=== PATIENT | male | born 1960 | race Caucasian/White ===

== ENCOUNTER → 2018-01-03 | Outpatient (CLI) | payer OTHER ==
[~2018-01-03] MED LIST: ACET-1256 PO; ACET-749 PO; AMOX500C3 PO; CIPR1TAB10 PO; CLC100 PO; CMD5 PO; CRS/10 PO; DIPH25CA65 PO; DTR5 PO; ENOX80IN SQ; FURO-85 PO; LVT/20 PO; PSEU60TA80 PO; WARF10TA4 PO
--- NOTE | 2018-01-04 07:56 | PAP/PSG TECHNICIAN REPORT ---
[facility] Popped Corn Oven Attendant Polysomnogram Report Study name: None Report date: 01/04/2018 Study date: 01/03/2018 Referring Physician: Luis Sullivan PA-C Name: TAWANA JOHNSON Interpreting Physician: Lorenzo Mcguire M.D. Date of : 1960 Popped Corn Oven Attendant: Linda Terrell, PSGT. Sex: Male Age: 57 StudyType: PSG Weight: 216 lbs Height: 57 years, Height 5' 9" Neck Circum:15.5 inches BMI: 31.89 Medications: Benadryl 25 mg, Lovenox 100, Lasix 20 mg, Crestor 10 mg, Levitra 20 mg, Coumadin 5 mg. Patient History 57 yr. old here for a baseline sleep study, he states that he went to his PCP and asked for ADD medication, and he was told he had to have a sleep study done prior. He also states that he sleeps sitting up in a recliner due to lower back pain, he states that he has poor sleep hygiene, wakes and watches t.v. or gets on the computer, walks around lets dog out etc. throughout the night.ESS=1, Neck= 15.5 inches Parameters Monitored NPSG: E1-M2, E2-M1, Fp1-M2, Fp2-M1, F3-M2, F4-M2, F4-M1, C3-M2, C4-M2, C4-M1, O1-M2, O2-M2, O2-M1, T3-M2, T4-M1, P3-M2, P4-M1, CHIN1, CHIN2, HR, EKG, Legs, PFLOW, SNOR, FLOW, CFLOW, Tidal Volume, THOR, ABDO, SpO2, PLTH, CPRESS, ETCO2 Wave, ETCO2, pH Sleep Architecture Sleep Stages Time at Lights Off 10:18:31 PM STAGES Time (min.) TST (%) Time at Lights On 5:27:31 AM Wake 90.5 -- Total Recording Time (TRT) 429.50 min. N1 15.5 5 Total Sleep Period (TSP) 351.5 min. N2 224.0 66 Total Sleep Time (TST) 338.5min. N3 0.0 0 Awake Time 91.0 min. REM 99.0 29 Wake after Sleep Onset 13.0 min. Sleep Efficiency (SE) 79 % Sleep Onset Latency (HAILEE) 77.5 min. Number of Stage 1 Shifts None Awakenings 5 Stage Changes 30 Number of REM periods 2 REM 99.0 29 REM Latency 56.0 min. NREM 239.5 71 Body Position Analysis Supine Right Left Side Prone Vertical Total Sleep Time (min.) 429.0 0.0 0.0 0.00 0.0 0.0 Total Sleep Time (%) 100% 0% 0% 0 0% N/A% Total Sleep Time REM (min.) 99.0 0.0 0.0 None 0.0 0.0 Total Sleep Time NREM (min.) 239.5 0.0 0.0 None 0.0 0.0 Intermittent Wake (min.) 90.5 0.0 0.0 None 0.0 0.0 Total Sleep Period (%) 100% None None None None None Arousals Myoclonus (PLM) * Events Count Index Events Count Index Spontaneous 26 5 Events Awake (PLMW) 1 0.7 Respiratory 38 6.7 Events Asleep w/ Arousal (PLMA) 2 0.4 PLM 2 0 Events Asleep w/o Arousal (PLMS) 16 2.8 Snoring 4 1 Total Asleep 18 3.2 Total 70 12 Total 19 3 Respiratory Analysis * CA OA MA CH H RERA Total Count 3 21 4 0 93 0 121 Index 0.5 3.7 0.7 0 16.5 0 21.4 Mean Duration 22.1 25.7 18.7 0.00 24.2 0.0 24.3 Longest Duration 27.6 31.6 25.5 0.00 25.5 0.0 53.3 Respiratory Event Summary Total Supine ~Supine Right Left Prone REM NREM Apneas Count 28 28 N/A N/A N/A N/A 0 28 Index 5.0 5 N/A N/A N/A N/A 0 7 Hypopneas (4% Desat) Count 93 93 N/A N/A N/A N/A 3 90 Index 16.5 16.5 N/A N/A N/A N/A 1.8 22.5 Apneas & All Hypopneas Count 121 121 N/A N/A N/A N/A 3 118 Index 21.4 21 N/A N/A N/A N/A 1.8 29.6 Respiratory Events (Chemical Processor+All Hyp+RERA) Count 121 121 N/A N/A N/A N/A 3 118 Index 21.4 21 N/A N/A N/A N/A 1.8 29.6 Respiratory Related Arousal Count 38 121 N/A N/A N/A N/A 0 38 Index 6.7 7 N/A N/A N/A N/A 0 10 Snoring Analysis Supine Right Left Prone REM NREM Total Snore duration 1.4 min Snores count 72 N/A N/A N/A 0 72 72 Snore mean duration 1.1 Sec Snores index 13 N/A N/A N/A 0.0 18.0 12.8 TST with snoring (%) 0.4% Desaturation Event Summary: Minimum %SpO2 Event Count Mean/Min/Max Duration(sec.) Desaturation Index % Time In Bed > 90 117 25.7 / 11.3 / 58.8 31.3 52.4 86 - 90 40 25.9 / 4.0 / 58.8 12.6 44.5 81 - 85 0 N/A 0.0 3.0 76 - 80 0 N/A 0.0 0.1 71 - 75 0 N/A 0.0 0.0 66 - 70 0 N/A 0.0 0.0 61 - 65 0 N/A 0.0 0.0 56 - 60 0 N/A 0.0 0.0 51 - 55 0 N/A 0.0 0.0 < 50 0 N/A 0.0 0.0 Total REM NREM Awake <50% 0.0 min. 0.0 min. 0.0 min. 0.0 min. 51 - 60% 0.0 min. 0.0 min. 0.0 min. 0.0 min. 61 - 70% 0.0 min. 0.0 min. 0.0 min. 0.0 min. 71 - 80% 0.4 min. 0.0 min. 0.3 min. 0.2 min. 81 - 90% 203.5 min. 61.9 min. 110.2 min. 31.4 min. 91 - 100% 224.4 min. 36.9 min. 128.8 min. 58.6 min. Average 90 90 90 91 Minimum SpO2 79 85 79 80 Desaturation Event Index 17.6 5.5 29.3 0.0 # Desat. Events below 89% 98 8 90 0 Time(%) with Saturation below 89% 11.9 2.2 7.7 2.0 Time(min.) with Saturation below 89% 51.1 9.6 33.1 8.4 Time (mins) REM (mins) NREM (mins) % of TST SpO2 Below 90% 126 9 N117 25.1 SpO2 Below 88% 43 0 0 8 Heart Rate Analysis Min (bpm) Max (bpm) Average (bpm) Awake 63 85 71 NREM 36 101 70 REM 37 82 71 Overall 36 101 70 Supplemental O2 Values Minimum O2 level: None Value Start Time End Time Popped Corn Oven Attendant Comments . PSG Study Mr. Johnson slept in the supine positions. Cardiac arrhythmia or PLM's noted. No bruxism noted. Snoring was noted and scored as a 2 on a scale of 1 through 5. (0=no snoring, 5=snoring loud enough to be heard through a closed door or down the mims way) Mr. Johnson awoke to use the restroom zero times during the night. Mr. Johnson stated, I did sleep as well as I do when I am in my own recliner. The final report will be interpreted and signed by a sleep physician. The completed physician report will then be placed in the patient medical record Patient slept at a 40% incline, I also told him that he did have sleep apnea, due to surgery on Thursday01/05/18 to have his prostrate removed, I told him that it would be beneficial for the anesthesiologist to know. Therapy (cm H2O) 0 TIB (min.) 429.0 TST (min.) 338.5 Sleep Onset (min.) 77.5 REM Onset From Sleep (min.) 56.0 Sleep Efficiency % 79 Wakefulness (%) 21 Wakefulness (min.) 91.0 NREM 1 (%) 5 NREM 1 (min.) 15.5 NREM 2 (%) 66 NREM 2 (min.) 224.0 NREM 3 (%) 0 NREM 3 (min.) 0.0 REM (%) 29 REM (min.) 99.0 # Arousals 70 Arousal Index 12 # Snore 72 Snore Index 12.8 AHI 21.4 AHI Supine 21 AHI Non-Supine N/A NREM AHI 29.6 REM AHI 1.8 RDI 21.4 # Obstructive Apnea 21 # Central Apnea 3 # Mixed Apnea 4 # Hypopneas 93 RERAs 0 Total Respiratory Events 121 Time Below SpO2 89% (min.) 42.7 Mean NREM SpO2 (%) 90 Mean REM SpO2 (%) 90 Mean Sleep SpO2 (%) 90 Min NREM SpO2 (%) 79 Min REM SpO2 (%) 85 Position Supine (min.) 429.0 Position Non-supine (min.) 0.0 LM Index Sleep 3.2 LM Index NREM 3.3 LM Index REM 3.0 Mean Heart Rate (bpm) 70 Min Heart Rate (bpm) 36
--- NOTE | 2018-01-08 12:38 | POLYSOMNOGRAPH REPORT ---
CLINICAL DATA: A 57-year-old male with BMI of 31.9 referred by Luis Acosta PA-C. He went to his primary care provider for ADD medication and was told he had to have a sleep study done prior to that. He sleeps sitting up in a recliner due to lower back pain. He awakens, watches TV or gets on the computer at night, walks his dog and has poor sleep hygiene. His Astatula sleepiness score is 1/24. SLEEP ARCHITECTURE: Total sleep period was 351.5 minutes. Total sleep time was 338.5 minutes divided between 239.5 minutes of non-REM sleep and 99 minutes of REM sleep. Sleep onset latency was delayed at 77.5 minutes. REM latency was 56 minutes. Sleep efficiency was 79%. Wake after sleep onset was 13 minutes. Sleep consisted of stage N1 5%, stage N2 66%, and REM 29%. AROUSAL DATA: Seventy arousals were recorded for an index of 12 per hour. PERIODIC LIMB MOVEMENT DATA: Eighteen limb movements during sleep were noted for an index of 3.2 per hour with arousal index of 0.4 per hour. RESPIRATORY DATA: Moderate sleep apnea was documented. The AHI was 21.4. There were 3 central, 21 obstructive, and 4 mixed apneic episodes. The longest apneic episode was 31.6 seconds. There were 93 hypopneic episodes. The longest hypopneic episode was 25.5 seconds. OXIMETRY DATA: Nocturnal hypoxemia was seen. Oxygen harley was 85% during REM. Mean saturation was 90%. Time below 88% was 43 minutes. ECHOCARDIOGRAM: Heart rates ranged from 36-101 beats per minute. SCENIC ARTS SUPERVISOR'S COMMENTS: The patient slept supine. Snoring was mild, rated 2 on a scale of 1-5. He slept at a 40% incline. IMPRESSION: Moderate sleep apnea/hypopnea with an apnea/hypopnea index of 21.4 with nocturnal hypoxemia. RECOMMENDATIONS: The patient may benefit from a repeat sleep study with CPAP or use of an oral appliance. Clinical correlation is needed. CLAUDIA
== END | disposition home or self-care (01) ==
LOC: C.NEUR 20:00
PROVIDERS: ATTEND Physician Assistant
DX: G47.9 Sleep disorder, unspecified (principal); G47.33 Obstructive sleep apnea (adult) (pediatric)

== ENCOUNTER 2018-01-05 05:25 | Inpatient (IN) | payer OTHER ==
[2017-12-25 14:11] VITALS: BMI 32.0
--- NOTE | 2017-12-25 14:23 | PAT Medication Instructions ---
Service Date Dec 25, 2017. Current Home Medication List Amoxicillin (Amoxil), 4 CAP PO UD PRN for RN Diphenhydramine Hcl (Benadryl Allergy), 1 CAP PO HS Furosemide (Lasix), 20 MG PO PRN Pseudoephedrine-Guaifenesin (Mucinex D), 1 TAB PO PRN Rosuvastatin Calcium (Crestor), 10 MG PO QPM Vardenafil (Levitra), 20 MG PO DIRECTED Warfarin Sod (Jantoven), 10 MG PO QPM Medication Instructions For Your Scheduled Surgery Amoxicillin (Amoxil), 4 CAP PO UD PRN for RN (continue as directed) - Check with surgeon and prescribing physician for instructions: Warfarin Sod (Jantoven), 10 MG PO QPM - Hold the following medications the morning of surgery: Furosemide (Lasix), 20 MG PO PRN Pseudoephedrine-Guaifenesin (Mucinex D), 1 TAB PO PRN Vardenafil (Levitra), 20 MG PO DIRECTED - Take the following medications as scheduled the night before surgery: Vardenafil (Levitra), 20 MG PO DIRECTED (if needed) Rosuvastatin Calcium (Crestor), 10 MG PO QPM Diphenhydramine Hcl (Benadryl Allergy), 1 CAP PO HS Furosemide (Lasix), 20 MG PO PRN (if needed) Pseudoephedrine-Guaifenesin (Mucinex D), 1 TAB PO PRN (if needed) If you have any questions please call us at [phone] or [phone] or [phone]
--- NOTE | 2017-12-25 15:16 | DIAGNOSTIC IMAGING REPORT ---
CHEST 2 VIEWS ROUTINE CLINICAL HISTORY: 57 years-old Male presenting with preoperative assessment. TECHNIQUE: PA and lateral views of the chest were obtained. COMPARISON: None. FINDINGS: Median sternotomy wires and prosthetic aortic valve noted. Cardiac silhouette normal in size. Lungs and pleural spaces clear. Exaggerated thoracic kyphosis with mild multilevel degenerative changes. No focal compression deformity. Upper abdomen normal. IMPRESSION: 1. No acute cardiopulmonary disease. Electronically signed by: Cooper Cisneros M.D. 12/25/2017 3:15 PM Dictated Date/Time: 12/25/2017 3:14 PM
[2017-12-25 15:34] LABS: BASO % 0.3 %; BASO ABS # 0.02 K/uL (0-0.2); EOS ABS # 0.07 K/uL (0-0.5); HEMATOCRIT 42.6 % (42-52); HEMOGLOBIN 14.8 g/dL (14.0-18.0); IG# 0.01 K/uL (0.00-0.02); LYMPH % 21.4 %; LYMPH ABS # 1.49 K/uL (1.2-3.4); MEAN CELL VOLUME 88.8 fL (80-100); MEAN CORPUSCULAR HEMOGLOBIN 30.8 pg (25-34); MEAN CORPUSCULAR HGB CONC 34.7 g/dl (32-36); MONO % 7.9 %; MONO ABS # 0.55 K/uL (0.11-0.59); NEUT % 69.3 %; NEUT ABS # 4.82 K/uL (1.4-6.5); PLATELET COUNT 177 K/uL (130-400); RED CELL DISTRIBUTION WIDTH CV 12.9 % (11.5-14.5); RED CELL DISTRIBUTION WIDTH SD 41.6 fL (36.4-46.3); WHITE BLOOD COUNT 6.96 K/uL (4.8-10.8)
[2017-12-25 16:14] LABS: CALCIUM 9.2 mg/dl (8.5-10.1); CREATININE 0.97 mg/dl (0.60-1.40); POTASSIUM 3.9 mmol/L (3.5-5.1)
[2018-01-05] VITALS (9 sets, daily range): BP systolic 105–128; BP diastolic 66–80; PULSE 80–101; TEMP 36.5–37.4; O2SAT 94–97; Ht 175.3 cm; Wt 98.8 kg
[~2018-01-05] VITALS: Ht 175.3 cm; Wt 98.8 kg
[~2018-01-05 05:25] MED LIST changes: -ACET-1256 PO; -ACET-749 PO; -CIPR1TAB10 PO; -CLC100 PO; -CMD5 PO; -DTR5 PO; -ENOX80IN SQ
[2018-01-05] MEDS ORDERED: LACTATED RINGER'S 1000ML 1,000 ML IV SCH (06:00)
[2018-01-05] MEDS ORDERED: CEFAZOLIN 2000MG IV PUSH 15 ML IV SCH (06:00)
[2018-01-05] MEDS ORDERED: HEPARIN SOD 5000 UNIT/0.5 ML CARP SQ SCH (06:00)
[2018-01-05 06:10] LABS: PTT PATIENT 26.4 SECONDS (21.0-31.0)
[2018-01-05] MEDS ORDERED: ENOX80IN SQ (06:11)
[2018-01-05] MEDS ORDERED: ONDANSETRON INJ 2 MG/ML 2 ML VIAL ONE ×2 (06:48→10:46)
[2018-01-05] MEDS ORDERED: MIDAZOLAM HCL 1 MG/ML 2ML VIAL ONE (06:48)
[2018-01-05] MEDS ORDERED: DEXAMETHASONE SOD INJ 4 MG/ML VIAL ONE (06:48)
[2018-01-05] MEDS ORDERED: GLYCOPYRROLATE INJ 0.2 MG/ML VIAL ONE (06:48)
[2018-01-05] MEDS ORDERED: PROPOFOL IV EMULSION 10 MG/ML 20 ML VIAL IV ONE (06:48)
[2018-01-05] MEDS ORDERED: NEOSTIGMINE METHYLSULFATE 5 MG/5 ML SYR ONE (06:48)
[2018-01-05] MEDS ORDERED: FENTANYL CITRATE INJ 50 MCG/1 ML 2 ML VIAL ONE (06:48)
[2018-01-05] MEDS ORDERED: LIDOCAINE HCL 2% 2 ML VIAL (20MG/ML) ONE (06:48)
[2018-01-05] MEDS ORDERED: BUPIVACAINE 0.5 % 5 MG/1 ML MPF 30ML VIAL ONE (06:57)
--- NOTE | 2018-01-05 07:21 | History & Physical Bridge Note ---
H&P Re-Evaluation Bridge Note: I have examined the patient, reviewed the History & Physical and in the interval since the performance of the History & Physical I have noted the following changes of clinical significance: No changes noted
[2018-01-05] MEDS ORDERED: ACETAMINOPHEN 1000 MG/100 ML IV IV ONE (07:35)
[2018-01-05] MEDS ORDERED: BELLADONNA/OPIUM SUPP 60 MG SUPP PR ONE ×2 (08:03→09:01)
[2018-01-05] MEDS ORDERED: ATROPINE SULFATE 0.1 MG/ML 5ML SYR IV PRN (08:15)
[2018-01-05] MEDS ORDERED: NALOXONE HCL 0.4 MG/1 ML VIAL/CARP IV PRN (08:15)
[2018-01-05] MEDS ORDERED: FLUMAZENIL 0.1 MG/1 ML 10 ML VIAL IV PRN (08:15)
[2018-01-05] MEDS ORDERED: MoRPHine SULFATE 4 MG/ML 1 ML CARP\\VIAL IV PRN (08:15)
[2018-01-05] MEDS ORDERED: EpHEDrine SULFATE INJ 50 MG/ML AMP IV PRN (08:15)
[2018-01-05] MEDS ORDERED: MEPERIDINE HCL 25 MG/ML CARP IV PRN (08:15)
[2018-01-05] MEDS ORDERED: LABETALOL HCL IV 5 MG/ML 20ML IV PRN (08:15)
[2018-01-05] MEDS ORDERED: ONDANSETRON INJ 2 MG/ML 2 ML VIAL IV PRN ×2 (08:15→11:15)
[2018-01-05] MEDS ORDERED: PHENYLEPHRINE 100MCG/ML 5ML SYR IV PRN (08:15)
[2018-01-05] MEDS ORDERED: ROCURONIUM BROMIDE 10 MG/ML 5 ML VIAL IV ONE (08:41)
[2018-01-05] MEDS ORDERED: PHENYLEPHRINE 100MCG/ML 5ML SYR ONE (08:44)
[2018-01-05] MEDS ORDERED: SURGICEL ABSORB HEMOSTAT 2IN X 14IN TOP ONE (09:00)
[2018-01-05] MEDS ORDERED: LACTATED RINGER'S 1000ML 1,000 ML IV ONE (10:00)
[2018-01-05] MEDS ORDERED: FLOSEAL HEMOSTATIC MATRIX 10ML TOP ONE (10:45)
[2018-01-05] MEDS ORDERED: KETOROLAC TROMETHAMINE 30 MG/ML VIAL ONE (10:58)
[2018-01-05] MEDS ORDERED: FUROSEMIDE 20 MG TAB PO PRN (11:15)
[2018-01-05] MEDS ORDERED: ACETAMINOPHEN/CODEINE 300/30MG TAB PO PRN (11:15)
[2018-01-05] MEDS ORDERED: OXYBUTYNIN CHLORIDE 5 MG TAB PO PRN (11:15)
[2018-01-05] MEDS ORDERED: HYDROmorphone INJ 1 MG/ML SYR IV PRN (11:15)
[2018-01-05] MEDS ORDERED: KETOROLAC TROMETHAMINE 30 MG/ML VIAL IV. PRN (11:15)
[2018-01-05] MEDS ORDERED: CEFAZOLIN IV 2,000 MG in DEXTROSE 5% 50ML 50 ML IV SCH (11:15)
--- NOTE | 2018-01-05 11:18 | [facility] Post Operative Brief Note ---
Immediate Operative Summary Operative Date Jan 05, 2018. Pre-Operative Diagnosis Prostate cancer Post-Operative Diagnosis Prostate cancer Procedure(s) Performed Laparoscopic Prostatectomy, bilateral pelvic lymph node dissection Hannah Surgeon Dr. Krish Guajardo Appliance Sales Associate Surgeon(s) MYA Yañez Estimated Blood Loss 250 mL Findings Consistent with Post-Op Diagnosis Specimens Permanent specimens A: Periprostatic Fat B: Right Pelvic Lymph Nodes C: Left Pelvic Lymph Nodes D: Prostate and seminal vesicles Drains MAXIMILIANO; lyons Anesthesia Type General Complication(s) none Disposition Accompanied Pt To Recover: yes Disposition: Recovery Room / PACU (stable)
[2018-01-05] MEDS: HYDROmorphone INJ 1 MG/ML SYR IV PRN ×4 (11:43→12:06)
--- NOTE | 2018-01-05 11:43 | [facility] Operative Report ---
Operative Report Operative Date Jan 05, 2018. Pre-Operative Diagnosis Prostate cancer Post-Operative Diagnosis Prostate cancer Procedure(s) Performed Laparoscopic Prostatectomy, bilateral pelvic lymph node dissection Hannah Surgeon Dr. Krish Guajardo Soup Mixer Surgeon(s) MYA Yañez Estimated Blood Loss 250 mL Findings Large cyst of the posterior aspect of the mid prostate -palpable on exam Specimens Permanent specimens A: Periprostatic Fat B: Right Pelvic Lymph Nodes C: Left Pelvic Lymph Nodes D: Prostate and seminal vesicles Drains MAXIMILIANO; lyons Anesthesia Type General Complication(s) none Disposition yes Recovery Room / PACU (stable) Indications [place] 8 prostate cancer Description of Procedure The patient was identified in the preoperative holding area, appropriate informed consents were reviewed and completed, and he was transported to the operating suite. Subcutaneous heparin was administered in the pre-operative holding area. Upon arrival in the operating suite, he received appropriate antibiotics and general anesthesia. He was positioned in dorsal lithotomy, a B& O suppository was inserted after digital rectal exam, and he was prepped and draped in standard fashion. A Lyons catheter was inserted in the sterile field. A Veress needle was passed per umbilicus with uniform insufflation of the abdomen to 15mmHg. He was placed in steep Trendelenburg position. A periumbilical incision was then made to accommodate a 12mm Visiport with 10mm 0degree laparoscope. Inspection of the abdomen was carried out, and there was no evidence of traumatic entry or injury secondary to the Veress needle. After confirming a clear anterior abdominal wall, ports were subsequently placed in standard robotic prostatectomy fashion without incident. To begin the robotic portion of the case, the left lateral aspect of the sigmoid was mobilized off of the left pelvic side wall to allow the pouch of Sushant to be appropriately visualized. The medial umbilical ligaments were then controlled with bipolar electrocautery just inferior to the umbilicus. Following cauterization, they were divided utilizing monopolar cautery. A peritoneal incision was carried from this location to the medial aspect of the internal inguinal rings bilaterally with care to avoid opening through the ring. This incision was concluded when the vas deferens was reached. Dissection of the bladder and prostate off of the posterior aspect of the pubic arch was completed allowing full visualization of the prostate. The fat overlying the prostate was removed en bloc and passed off the table as a specimen labeled "periprostatic fat". The endopelvic fascia was cleared during this portion of the procedure, and subsequently opened - first on the right and then the left. The incision through the endopelvic fascia began near the prostate-bladder junction and was carried to the apex with extreme care to preserve all lateral levator musculature as well as the periurethral musculature and sphincter complex. The puboprostatic ligaments were thinned slightly bilaterally before placing a 0-Vicryl figure of 8 stitch around the DVC. The lymph node dissection was then conducted. External iliac vessels were identified on the pelvic side wall. The packet of fat and lymphatic tissue that resides just under the iliac vein was elevated and off of the vein with a split and roll technique. The packet was dissected laterally to the circumflex vein and distally to the obturator nerve which was preserved. The proximal aspect of the packet was carried towards the bifurcation of the iliac vessels. A combination of monopolar and bipolar cautery were used to assist with control. Clips were placed at the proximal and distal aspects of the packet prior to transection. After completing the dissection on both sides, the packets were collected and passed off of the table as specimens labeled "pelvic lymph nodes". My attention then returned to the prostate, with identification of the bladder neck aided by gentle traction on the Lyons catheter and lateral to medial pressure at the presumed level of the bladder neck with the robotic instruments. An anterior cystotomy was made, the Lyons balloon deflated and the catheter guided through the incision to allow anterior retraction. I attempted to preserve maximal bladder neck musculature as I circumferentially dissected around the bladder neck. After incision through the posterior aspect of the mucosa, the dissection was carried through detrusor muscle until the bilateral ampullae of the vasa were identified. After identifying the vasa, I developed a pedicle packet on each side to help flatten the dissection and placed Weck clips across the most proximal and superficial aspects of these packets adjacent to the bladder. The packets were then divided allowing easier visualization of the vasa and posterior aspect of the prostate. Vasa were each dissected before being transected. These were used to further aide in anterior retraction as the bilateral seminal vesicals were dissected with very judicious use of bipolar electrocautery. Following SV dissection, a posterior plane behind the prostate was developed - splitting Denonvilliers's fascia. This dissection was carried as far as possible towards the apex as well as far as possible laterally. An incision in the lateral prostatic fascia was then made bilaterally to facilitate control of the vascular pedicles. The pedicles were each controlled with a series of Weck clips. The neurovascular bundles were identified and a moderate nerve sparing was performed on the right and a more conservative approach on the left. Both sides showed some inflammatory response. The apical attachments of the prostate were remaining at that stage. The DVC was divided with bipolar electrocautery. Kerry-prostatic tissue incised with sharp dissection and monopolar cautery. Maximal urethral length was preserved before dividing the urethra sharply. The prostate was entirely freed at that point, and collected in an EndoCatch bag before being moved out of the field of vision. Hemostasis was confirmed and anastomosis of the bladder and urethra was completed utilizing a double armed V- Lock stitch. A new Lyons catheter was inserted and the anastomosis tested with irrigation. There was no evidence of leak. FloSeal coagulant was placed around the anastomosis. The robot was undocked, the specimen extracted through expansion of the kerry- umbilical camera port. The fascia was closed with a series of 0-PDS figure of 8 stitches. The right speech pathology assistant port was closed in two layers - with a figure of 8 0-Vicryl to reapproximate the fascia followed by 4-0 Monocryl to close the skin. Monocryl was used to close all other skin incisions. All wounds were dressed with Dermabond. The case was concluded and the patient taken to the PACU in stable condition. I attest to the content of the Intraoperative Record and any orders documented therein. Any exceptions are noted below.
[2018-01-05 12:00] LABS: HEMATOCRIT 39.8 % (42-52); HEMOGLOBIN 14.1 g/dL (14.0-18.0); MEAN CORPUSCULAR HEMOGLOBIN 31.5 pg (25-34); MEAN PLATELET VOLUME 9.8 fL (7.4-10.4); PLATELET COUNT 166 K/uL (130-400); RED CELL DISTRIBUTION WIDTH CV 12.7 % (11.5-14.5); RED CELL DISTRIBUTION WIDTH SD 40.7 fL (36.4-46.3)
[2018-01-05 12:18] LABS: CALCIUM 8.4 mg/dl (8.5-10.1); CREATININE 0.99 mg/dl (0.60-1.40); MEAN CORPUSCULAR HGB CONC 35.4 g/dl (32-36); POTASSIUM 4.3 mmol/L (3.5-5.1)
--- NOTE | 2018-01-05 12:26 | Anesthesiology Progress Note ---
Anesthesia Post Op Note Date & Time Jan 05, 2018 at 12:26 Vital Signs Pain Intensity: 0 Vital Signs Past 12 Hours Date Time Temp Pulse Resp B/P (MAP) Pulse Ox O2 Delivery O2 Flow Rate FiO2 01/05/18 12:11 121/73 01/05/18 12:08 91 9 96 01/05/18 12:08 90 9 01/05/18 12:06 128/74 01/05/18 12:03 87 11 98 01/05/18 12:03 87 11 01/05/18 12:01 125/66 01/05/18 11:58 86 12 01/05/18 11:58 85 12 97 01/05/18 11:57 86 13 98 01/05/18 11:57 86 13 01/05/18 11:56 124/66 01/05/18 11:52 85 13 01/05/18 11:52 85 13 114/70 100 01/05/18 11:47 82 16 01/05/18 11:47 82 16 100 01/05/18 11:46 103/62 01/05/18 11:42 79 18 100 01/05/18 11:42 79 18 01/05/18 11:41 114/64 01/05/18 11:39 111/64 01/05/18 11:37 79 16 01/05/18 11:37 77 16 100 01/05/18 11:32 78 19 100 01/05/18 11:32 78 19 01/05/18 11:31 106/64 01/05/18 11:28 113/62 01/05/18 11:27 36.4 75 16 113/62 (71) 99 Oxymask 10 01/05/18 05:45 36.5 80 18 121/80 95 Room Air Notes Mental Status: alert / awake / arousable, participated in evaluation Pt Amnestic to Procedure: Yes Nausea / Vomiting: adequately controlled Pain: adequately controlled Airway Patency, RR, SpO2: stable & adequate BP & HR: stable & adequate Hydration State: stable & adequate Anesthetic Complications: no major complications apparent The patient is doing well. He appears to be resting comfortably.
[2018-01-05] MEDS: LACTATED RINGER'S 1000ML 1,000 ML IV SCH ×2 (14:00→20:47)
[2018-01-05] MEDS: ACETAMINOPHEN 500 MG TAB PO SCH ×2 (14:40→20:00)
[2018-01-05] MEDS: CEFAZOLIN IV 2,000 MG in SYRINGE 0 ML IV SCH (15:53)
[2018-01-05] MEDS: HEPARIN SOD 5000 UNIT/0.5 ML CARP SQ SCH (19:02)
[2018-01-05] MEDS ORDERED: ROSUVASTATIN CALCIUM 10 MG TAB PO SCH (21:00)
[2018-01-05] MEDS: DOCUSATE SODIUM 100 MG CAP PO SCH (21:45)
[2018-01-06] MEDS: CEFAZOLIN IV 2,000 MG in SYRINGE 0 ML IV SCH ×2 (00:04→08:05)
[2018-01-06] MEDS: ACETAMINOPHEN 500 MG TAB PO SCH ×2 (02:00→08:00)
[2018-01-06] MEDS: LACTATED RINGER'S 1000ML 1,000 ML IV SCH ×2 (03:01→09:53)
[2018-01-06 04:09] VITALS: BP 114/73; PULSE 88; TEMP 37; O2SAT 97
[2018-01-06] MEDS: HEPARIN SOD 5000 UNIT/0.5 ML CARP SQ SCH (06:11)
[2018-01-06 07:15] VITALS: BP 116/71; PULSE 89; TEMP 37.1; O2SAT 96
[2018-01-06 07:34] LABS: HEMATOCRIT 37.5 % (42-52); HEMOGLOBIN 13.1 g/dL (14.0-18.0); IG# 0.03 K/uL (0.00-0.02); LYMPH % 6.4 %; LYMPH ABS # 0.78 K/uL (1.2-3.4); MEAN CELL VOLUME 87.4 fL (80-100); MEAN CORPUSCULAR HEMOGLOBIN 30.5 pg (25-34); MEAN CORPUSCULAR HGB CONC 34.9 g/dl (32-36); MEAN PLATELET VOLUME 9.6 fL (7.4-10.4); MONO % 7.1 %; MONO ABS # 0.87 K/uL (0.11-0.59); NEUT % 86.3 %; NEUT ABS # 10.49 K/uL (1.4-6.5); PLATELET COUNT 168 K/uL (130-400); RED CELL DISTRIBUTION WIDTH CV 12.9 % (11.5-14.5); RED CELL DISTRIBUTION WIDTH SD 41.1 fL (36.4-46.3); WHITE BLOOD COUNT 12.17 K/uL (4.8-10.8)
[2018-01-06 07:59] LABS: CALCIUM 8.4 mg/dl (8.5-10.1); CREATININE 0.92 mg/dl (0.60-1.40); POTASSIUM 3.8 mmol/L (3.5-5.1)
--- NOTE | 2018-01-06 08:30 | Anesthesiology Progress Note ---
Anesthesia Post Op Note Date & Time Jan 06, 2018 at 08:29 Vital Signs Pain Intensity: 8.0 Vital Signs Past 12 Hours Date Time Temp Pulse Resp B/P (MAP) Pulse Ox O2 Delivery O2 Flow Rate FiO2 01/06/18 07:15 37.1 89 16 116/71 (86) 96 Room Air 01/06/18 04:09 37.0 88 16 114/73 (87) 97 Room Air 01/06/18 00:10 Room Air 01/05/18 23:16 37.2 85 16 113/71 (85) 97 Room Air Notes Mental Status: alert / awake / arousable, participated in evaluation Pt Amnestic to Procedure: Yes Nausea / Vomiting: adequately controlled Pain: adequately controlled Airway Patency, RR, SpO2: stable & adequate BP & HR: stable & adequate Hydration State: stable & adequate Anesthetic Complications: no major complications apparent
--- NOTE | 2018-01-06 09:22 | Progress Note ---
Subjective Date of Service: Jan 06, 2018. Subjective Pt evaluation today including: conversation w/ patient, physical exam, chart review, lab review Voiding: lyons catheter in place Only complaint overnight his bladder spasms Pain is minimal Ambulated this morning Tolerated diet Urine is clear appropriately Low MAXIMILIANO output Review of Systems Constitutional: No see HPI, No fever, No chills, No sweats, No weight loss, No weakness, No fatigue, No problem reported Objective Vital Signs Date Time Temp Pulse Resp B/P (MAP) Pulse Ox O2 Delivery O2 Flow Rate FiO2 01/06/18 07:15 37.1 89 16 116/71 (86) 96 Room Air 01/06/18 04:09 37.0 88 16 114/73 (87) 97 Room Air 01/06/18 00:10 Room Air 01/05/18 23:16 37.2 85 16 113/71 (85) 97 Room Air 01/05/18 20:19 37.0 85 18 105/66 (79) 95 Room Air 01/05/18 17:38 94 Room Air 01/05/18 16:04 36.7 98 18 119/76 (90) 94 01/05/18 15:50 Nasal Cannula 2.0 01/05/18 15:05 36.7 101 18 110/67 (81) 96 Nasal Cannula 3.0 01/05/18 14:00 99 17 111/76 (88) 95 01/05/18 13:30 99 18 128/74 (92) 95 01/05/18 13:00 Nasal Cannula 3.0 01/05/18 13:00 37.4 99 14 112/76 (88) 96 Nasal Cannula 3.0 01/05/18 13:00 Nasal Cannula 3.0 01/05/18 12:41 98 12 92 01/05/18 12:41 98 12 01/05/18 12:36 98 12 93 01/05/18 12:36 98 12 01/05/18 12:31 98 12 01/05/18 12:31 98 12 120/71 93 01/05/18 12:25 36.7 96 12 116/75 93 Nasal Cannula 3 01/05/18 12:22 96 12 96 01/05/18 12:22 95 12 01/05/18 12:21 114/70 01/05/18 12:17 95 9 93 01/05/18 12:17 94 9 01/05/18 12:16 103/78 01/05/18 12:12 90 14 01/05/18 12:12 92 14 92 01/05/18 12:11 121/73 01/05/18 12:08 91 9 96 01/05/18 12:08 90 9 01/05/18 12:06 128/74 01/05/18 12:03 87 11 98 01/05/18 12:03 87 11 01/05/18 12:01 125/66 01/05/18 11:58 86 12 01/05/18 11:58 85 12 97 01/05/18 11:57 86 13 98 01/05/18 11:57 86 13 01/05/18 11:56 124/66 01/05/18 11:52 85 13 01/05/18 11:52 85 13 114/70 100 01/05/18 11:47 82 16 01/05/18 11:47 82 16 100 01/05/18 11:46 103/62 01/05/18 11:42 79 18 100 01/05/18 11:42 79 18 01/05/18 11:41 114/64 01/05/18 11:39 111/64 01/05/18 11:37 79 16 01/05/18 11:37 77 16 100 01/05/18 11:32 78 19 100 01/05/18 11:32 78 19 01/05/18 11:31 106/64 01/05/18 11:28 113/62 01/05/18 11:27 36.4 75 16 113/62 (71) 99 Oxymask 10 Physical Exam General Appearance: WD/WN, no apparent distress Eyes: normal inspection ENT: hearing grossly normal Neck: no adenopathy Respiratory/Chest: no respiratory distress, no accessory muscle use Abdomen: soft (Incisions appropriate without discharge or signs of infection or hematoma; MAXIMILIANO serosanguineous; Lyons clear) Laboratory Results Last 24 Hours Test 01/05/18 11:48 01/06/18 07:19 White Blood Count 12.80 K/uL 12.17 K/uL Red Blood Count 4.47 M/uL 4.29 M/uL Hemoglobin 14.1 g/dL 13.1 g/dL Hematocrit 39.8 % 37.5 % Mean Corpuscular Volume 89.0 fL 87.4 fL Mean Corpuscular Hemoglobin 31.5 pg 30.5 pg Mean Corpuscular Hemoglobin Concent 35.4 g/dl 34.9 g/dl RDW Standard Deviation 40.7 fL 41.1 fL RDW Coefficient of Variation 12.7 % 12.9 % Platelet Count 166 K/uL 168 K/uL Mean Platelet Volume 9.8 fL 9.6 fL Sodium Level 137 mmol/L 138 mmol/L Potassium Level 4.3 mmol/L 3.8 mmol/L Chloride Level 103 mmol/L 105 mmol/L Carbon Dioxide Level 24 mmol/L 25 mmol/L Anion Gap 9.0 mmol/L 8.0 mmol/L Blood Urea Nitrogen 22 mg/dl 14 mg/dl Creatinine 0.99 mg/dl 0.92 mg/dl Est Creatinine Clear Calc Drug Dose 94.3 ml/min 101.5 ml/min Estimated GFR () 96.9 105.9 Estimated GFR (Non- 83.6 91.4 BUN/Creatinine Ratio 21.9 15.7 Random Glucose 98 mg/dl 155 mg/dl Calcium Level 8.4 mg/dl 8.4 mg/dl Neutrophils (%) (Auto) 86.3 % Lymphocytes (%) (Auto) 6.4 % Monocytes (%) (Auto) 7.1 % Eosinophils (%) (Auto) 0.0 % Basophils (%) (Auto) 0.0 % Neutrophils # (Auto) 10.49 K/uL Lymphocytes # (Auto) 0.78 K/uL Monocytes # (Auto) 0.87 K/uL Eosinophils # (Auto) 0.00 K/uL Basophils # (Auto) 0.00 K/uL Immature Granulocyte % (Auto) 0.2 % Immature Granulocyte # (Auto) 0.03 K/uL Assessment and Plan Postop day #1 status post robotic prostatectomy with lymph node dissection Progressing appropriately Labs stable Tolerating diet and ambulating Plan for MAXIMILIANO removal today Likely discharge home later this afternoon with Lyons catheter in place
[2018-01-06] MEDS ORDERED: ACET-749 PO (09:31)
[2018-01-06] MEDS ORDERED: DTR5 PO (09:31)
[2018-01-06] MEDS ORDERED: CIPR1TAB10 PO (09:31)
[2018-01-06] MEDS ORDERED: CLC100 PO (09:31)
--- NOTE | 2018-01-06 09:34 | Discharge Instructions ---
Discharge Instructions Date of Service Jan 06, 2018. Admission Reason for Admission: Prostate Cancer Discharge Discharge Diagnosis / Problem: Prostate Cancer Discharge Goals Goal(s): Decrease discomfort, Increase independence, Improve disease control, Therapeutic intervention Activity Recommendations Activity Limitations: per Instructions/Follow-up section Shower/Bathe: tomorrow . Instructions / Follow-Up Instructions / Follow-Up 1. Do not lift >15lbs x 6 weeks. 2. No heavy exercise x 6 weeks. You may engage in light activity such as walking and stairs as tolerated. 3. No sexual intercourse until cleared by Dr. Guajardo. Resume Levitra once cleared by Dr. Guajardo. 4. [address] drive x [address] while taking narcotics. 5. You have been prescribed the antibiotic Ciprofloxacin. Start this medication 2 days prior to lyons catheter removal. Finish all of the antibiotic you have been prescribed. 6. Immediately call our office at [phone] if your catheter is removed for any reason. 7. Follow-up as scheduled. Please call our office at [phone] if you need to reschedule for any reason. 8. Resume Coumadin per Coumadin clinic. . Current Hospital Diet Patient's current hospital diet: Clear Liquid Diet Discharge Diet Recommended Diet: Regular Diet Procedures Procedures Performed: Laparoscopic Prostatectomy, bilateral pelvic lymph node dissection DaVmelonie Pending Studies Studies pending at discharge: yes List of pending studies: prostate and lymph node pathology Medical Emergencies . Who to Call and When: Medical Emergencies: If at any time you feel your situation is an emergency, please call 911 immediately. . Non-Emergent Contact Non-Emergency issues call your: Urologist Call Non-Emergent contact if: temperature is above 101.5, your pain is not controlled, your pain is worsening, your pain is unusual for you, your pain is concerning you, wound has increased drainage, wound has increased redness, wound has increased pain, you have any medication questions . . "Provider Documentation" section prepared by Sherrie Das. . [place] Drug Monitoring Program Search Results: patient reviewed within database, no issues identified
[2018-01-06] MEDS: DOCUSATE SODIUM 100 MG CAP PO SCH (09:52)
[2018-01-06 15:30] VITALS: BP 116/71; PULSE 89; TEMP 37.1; O2SAT 96
== END 2018-01-06 15:52 | disposition home or self-care (01) | DRG 708 ==
LOC: C.ACU 05:25 → C.MSN 11:15 → ENRESERV 12:27
PROVIDERS: ADMIT Urology; ATTEND Urology
PROC: 8E0W4CZ Robotic Assisted Procedure of Trunk Region, Percutaneous Endoscopic Approach (ICD-10-PCS; principal; 2018-01-05 07:30)
PROC: 0VT04ZZ Resection of Prostate, Percutaneous Endoscopic Approach (ICD-10-PCS; principal; 2018-01-05 07:30)
PROC: 07BC4ZX Excision of Pelvis Lymphatic, Percutaneous Endoscopic Approach, Diagnostic (ICD-10-PCS; principal; 2018-01-05 07:30)
DX: C61 Malignant neoplasm of prostate (principal); N52.9 Male erectile dysfunction, unspecified; E78.5 Hyperlipidemia, unspecified; Z79.01 Long term (current) use of anticoagulants; Z79.899 Other long term (current) drug therapy; Z95.2 Presence of prosthetic heart valve; Z80.0 Family history of malignant neoplasm of digestive organs

== ENCOUNTER → 2018-01-12 | Outpatient (CLI) | payer OTHER ==
[~2018-01-12] MED LIST changes: +ACET-1256 PO; +ACET-749 PO; +BTP80 PO; +CEFU1TAB33 PO; +CIPR1TAB10 PO; +CLC100 PO; +CMD5 PO; +DTR5 PO; +ENOX80IN SQ; -LVT/20 PO; +SENN8.6T7 PO; -WARF10TA4 PO
--- NOTE | 2018-01-12 10:41 | DIAGNOSTIC IMAGING REPORT ---
(TESTICULAR) SCROTUM-CONT CLINICAL HISTORY: 57 years-old Male presenting with N50.89 Scrotal swellingR/O [id number], history of prostatectomy, scrotal pain and swelling. TECHNIQUE: Real-time grayscale and color and spectral Doppler ultrasound imaging of the scrotum was performed. COMPARISON: CT from 11/30/2017. FINDINGS: Right testis: Normal echogenicity and echotexture. Testis measures 3.9 x 3.3 x 3.0 cm. Normal color Doppler flow and arterial and venous waveforms in the testicular parenchyma. Epididymal head normal. Small hydrocele. No varicocele. Left testis: Normal echogenicity and echotexture. Testis measures 3.5 x 2.3 x 2.6 cm. Normal color Doppler flow and arterial and venous waveforms in the testicular parenchyma. Epididymal head cysts versus spermatoceles noted. Small hydrocele. No varicocele. Symmetric perfusion of the testes. Significant subcutaneous edema of the scrotum with skin thickening. IMPRESSION: 1. No evidence of testicular torsion. 2. Small bilateral hydroceles. 3. Significant scrotal edema and skin thickening. Correlate clinically to exclude cellulitis, which by the patient's description and report from urology is considered less likely. Differential considerations include an exuberant postsurgical response within the range of normal versus a lymphatic or venous obstruction in the pelvis. In the setting of a lymph node dissection, lymphatic obstruction is possible. Less likely, a pelvic venous thrombosis could be a cause of this appearance and would be better excluded with a contrast-enhanced CT of the pelvis. These findings were discussed with the patient. The report will be called/faxed according to standard departmental protocol. Electronically signed by: Cooper Cisneros M.D. 01/12/2018 10:40 AM Dictated Date/Time: 01/12/2018 10:28 AM
== END | disposition home or self-care (01) ==
LOC: C.ULTR 09:50
PROVIDERS: ATTEND Urology
DX: N50.89 Other specified disorders of the male genital organs (principal)

== ENCOUNTER 2018-01-13 16:02 | Inpatient (IN) | payer OTHER ==
[~2018-01-13] VITALS: Ht 175.3 cm; Wt 95.3 kg
[~2018-01-13 16:02] MED LIST changes: -ACET-1256 PO; -BTP80 PO; -CEFU1TAB33 PO; -CMD5 PO; -SENN8.6T7 PO
--- NOTE | 2018-01-13 16:31 | EMERGENCY ROOM VISIT NOTE ---
History Report prepared by Kell: Chu Holly Under the Supervision of: Dr. Perry Parker M.D. First contact with patient: 16:06 Chief Complaint: CARDIAC ASSESSMENT Stated Complaint: CARDIAC ASSESSMENT History of Present Illness The patient is a 57 year old male who presents to the Emergency Room for a cardiac assessment with complaints of resolved tachycardia and constant scrotal edema starting earlier today. The patient states that he has also had some leg swelling, though he states that he does not have any leg pain or scrotal pain. The patient states that he had a prostatectomy 8 days ago due to prostate cancer , and he notes that his catheter was removed yesterday. The patient notes that his heart rate was 209 earlier. He notes that he had leg swelling yesterday, though today it has been worse, and he has not been able to urinate very much. He denies any shortness of breath, fever, and he states that he did not feel his heart racing, though he states that he could feel it in his chest when his heart rate slowed down. The patient was at the [facility] [place] and transferred here for presumed admission. Patient had been placed on a Cardizem drip for A. fib while at [place]. Source of History: patient Onset: this morning Position: other (scrotum) Quality: other (tachycardia and scrotal swelling) Timing: constant, resolved Associated Symptoms: No fevers, No SOB Note: Associated symptoms: Leg swelling Review of Systems See HPI for pertinent positives & negatives. A total of 10 systems reviewed and were otherwise negative. Past Medical & Surgical Medical Problems: (1) Prostate cancer Surgical Problems: (1) H/O prostatectomy Social History Smoking Status: Never Smoker Marital Status: Housing Status: lives with family Current/Historical Medications Scheduled Diphenhydramine Hcl (Benadryl Allergy), 1 CAP PO HS Rosuvastatin Calcium (Crestor), 10 MG PO QPM Scheduled PRN Acetaminophen (Tylenol), 1,000 MG PO Q8 PRN for Pain or Fever Docusate Sodium (Docusate Sodium), 100 MG PO BID PRN for Constipation Furosemide (Lasix), 20 MG PO DAILY PRN for EDEMA Allergies Coded Allergies: No Known Allergies (Unverified , 01/05/18) Physical Exam Vital Signs Date Time Temp Pulse Resp B/P (MAP) Pulse Ox O2 Delivery O2 Flow Rate FiO2 01/13/18 17:44 74 20 115/84 98 Room Air 01/13/18 17:31 97 Room Air 01/13/18 16:32 70 01/13/18 16:08 37.1 72 19 117/74 97 Room Air 01/13/18 16:08 Room Air Physical Exam GENERAL: Patient is in no acute distress. HEENT: No acute trauma, normocephalic atraumatic, mucous membranes moist, no nasal congestion, no scleral icterus. NECK: No stridor, no adenopathy, no meningismus, trachea is midline. LUNGS: Clear to auscultation bilaterally, no wheeze, no rhonchi, breath sounds equal. HEART: Without murmurs gallops or rubs, regular rate and rhythm. ABDOMEN: Surgical incisions healing without signs of infection. Soft, nontender , bowel sounds positive, no hernias, no peritonitis. GROIN: Erythema and edema to the scrotum. No obvious cellulitis. EXTREMITIES: Mild bilateral pedal edema. No cyanosis, full range of motion of all the joints without pain or difficulty, no signs for acute trauma. NEUROLOGIC: Oriented x 3, no acute motor or sensory deficits, no focal weakness. SKIN: No rash, no jaundice, no diaphoresis. Medical Decision & Procedures ER Provider Diagnostic Interpretation: Radiology results as stated below per my review and radiologist interpretation: CHEST ONE VIEW PORTABLE HISTORY: possible cardiomegaly COMPARISON: Chest 12/25/2017. FINDINGS: There is a new linear density at the left lung base. There are low lung volumes. Postoperative changes and a cardiac valve prosthesis are again noted. The cardiac silhouette is borderline enlarged. No evidence for pulmonary edema. No pleural effusions. No pneumothorax. IMPRESSION: 1. Borderline enlargement cardiac silhouette. However, this could be accentuated by the AP portable technique and low lung volumes. 2. Linear density at the left lung base favor subsegmental atelectasis. A pneumonia could also have a similar appearance in the appropriate clinical setting. Electronically signed by: Aristeo Diehl M.D. 01/13/2018 5:17 PM Dictated Date/Time: 01/13/2018 5:15 PM Laboratory Results 01/13/18 17:03 Red Blood Count 3.89, Mean Corpuscular Volume 91.3, Mean Corpuscular Hemoglobin 31.1, Mean Corpuscular Hemoglobin Concent 34.1, Mean Platelet Volume 10.4, Neutrophils (%) (Auto) 78.3, Lymphocytes (%) (Auto) 12.8, Monocytes (%) (Auto) 7.7, Eosinophils (%) (Auto) 0.5, Basophils (%) (Auto) 0.2, Neutrophils # (Auto) 7.68, Lymphocytes # (Auto) 1.26, Monocytes # (Auto) 0.76, Eosinophils # (Auto) 0.05, Basophils # (Auto) 0.02 01/13/18 17:03 Test 01/13/18 17:03 White Blood Count 9.82 K/uL (4.8-10.8) Red Blood Count 3.89 M/uL (4.7-6.1) Hemoglobin 12.1 g/dL (14.0-18.0) Hematocrit 35.5 % (42-52) Mean Corpuscular Volume 91.3 fL (80-100) Mean Corpuscular Hemoglobin 31.1 pg (25-34) Mean Corpuscular Hemoglobin Concent 34.1 g/dl (32-36) Platelet Count 204 K/uL (130-400) Mean Platelet Volume 10.4 fL (7.4-10.4) Neutrophils (%) (Auto) 78.3 % Lymphocytes (%) (Auto) 12.8 % Monocytes (%) (Auto) 7.7 % Eosinophils (%) (Auto) 0.5 % Basophils (%) (Auto) 0.2 % Neutrophils # (Auto) 7.68 K/uL (1.4-6.5) Lymphocytes # (Auto) 1.26 K/uL (1.2-3.4) Monocytes # (Auto) 0.76 K/uL (0.11-0.59) Eosinophils # (Auto) 0.05 K/uL (0-0.5) Basophils # (Auto) 0.02 K/uL (0-0.2) RDW Standard Deviation 46.3 fL (36.4-46.3) RDW Coefficient of Variation 14.7 % (11.5-14.5) Immature Granulocyte % (Auto) 0.5 % Immature Granulocyte # (Auto) 0.05 K/uL (0.00-0.02) Prothrombin Time 66.4 SECONDS (9.0-12.0) Prothromb Time International Ratio 6.6 (0.9-1.1) Activated Partial Thromboplast Time 43.9 SECONDS (21.0-31.0) Partial Thromboplastin Ratio 1.7 Anion Gap 7.0 mmol/L (3-11) Est Creatinine Clear Calc Drug Dose 111.2 ml/min Estimated GFR () 110.3 Estimated GFR (Non- 95.1 BUN/Creatinine Ratio 33.8 (10-20) Calcium Level 7.9 mg/dl (8.5-10.1) Magnesium Level 2.1 mg/dl (1.8-2.4) Total Bilirubin 0.6 mg/dl (0.2-1) Aspartate Amino Transf (AST/SGOT) 57 U/L (15-37) Alanine Aminotransferase (ALT/SGPT) 89 U/L (12-78) Alkaline Phosphatase 56 U/L (45-117) Troponin I 0.042 ng/ml (0-0.045) Total Protein 5.7 gm/dl (6.4-8.2) Albumin 3.1 gm/dl (3.4-5.0) Globulin 2.6 gm/dl (2.5-4.0) Albumin/Globulin Ratio 1.2 (0.9-2) Thyroid Stimulating Hormone (TSH) 1.140 uIu/ml (0.300-4.500) Laboratory results reviewed by me. ECG Per My Interpretation Indication: tachycardia Rate (beats per minute): 75 Rhythm: normal sinus Findings: RBBB, T-wave inversion (inferior and lateral), other (LVH) Comparison ECG Date: no prior available ED Course 1606: The patient was evaluated in room C12. A complete history and physical exam was performed. 1627: Discussed the patient's case with Dr. Jose Castro [facility] Hospitalist. The patient will be evaluated for further management. She asked for baseline labs, and she is going to further evaluate him since we think that he is stable. Medical Decision Differential diagnoses considered include rapid A-fib, electrolyte imbalance, surgical site infection, fluid overload, urinary retention, anemia, and cellulitis There is no leukocytosis or worrisome anemia. No significant electrolyte abnormality or kidney failure. There were a few very mild liver enzyme elevations. The patient appears to be in a euthyroid state. EKG shows a normal sinus rhythm with a right bundle branch block and LVH. There are some inverted T waves in the inferior and lateral leads-no old EKGs available for comparison. Cardiac enzyme testing 1 does not show evidence for acute cardiac injury. INR is elevated at over 6, the patient is on Coumadin and apparently, over anticoagulated. Chest film does not show pneumonia or CHF, some atelectasis was seen. On exam, the patient has some scrotal edema, no true cellulitis. He was not toxic, he was not hypoxic or febrile. The patient was felt medically stable for an admission to our hospital. I did not feel any emergent ER intervention was required. As the patient was in a sinus rhythm, the Cardizem drip was not restarted. I did speak with the on- call hospitalist. I spoke with case management. The patient is currently resting comfortably. Medication Reconcilliation Current Medication List: was personally reviewed by me Blood Pressure Screening Patient's blood pressure: Normal blood pressure Consults Time Called: 1612 Consulting Physician: Dr. Jose Jesus Hospitalist Returned Call: 1627 Discussed the patient's case with Dr. [facility]. The patient will be evaluated for further management. She asked for baseline labs, and she is going to further evaluate him since we think that he is stable. Impression Primary Impression: Rapid atrial fibrillation Additional Impressions: Scrotal edema S/P prostatectomy Scribe Attestation The scribe's documentation has been prepared under my direction and personally reviewed by me in its entirety. I confirm that the note above accurately reflects all work, treatment, procedures, and medical decision making performed by me. Departure Information Dispostion Being Evaluated By Hospitalist Referrals Karoline Bonilla M.D. (PCP) Patient Instructions My [facility] Problem Qualifiers
[2018-01-13] MEDS ORDERED: ACET-1256 PO ×2 (17:10)
--- NOTE | 2018-01-13 17:18 | DIAGNOSTIC IMAGING REPORT ---
CHEST ONE VIEW PORTABLE HISTORY: possible cardiomegaly COMPARISON: Chest 12/25/2017. FINDINGS: There is a new linear density at the left lung base. There are low lung volumes. Postoperative changes and a cardiac valve prosthesis are again noted. The cardiac silhouette is borderline enlarged. No evidence for pulmonary edema. No pleural effusions. No pneumothorax. IMPRESSION: 1. Borderline enlargement cardiac silhouette. However, this could be accentuated by the AP portable technique and low lung volumes. 2. Linear density at the left lung base favor subsegmental atelectasis. A pneumonia could also have a similar appearance in the appropriate clinical setting. Electronically signed by: Aristeo Diehl M.D. 01/13/2018 5:17 PM Dictated Date/Time: 01/13/2018 5:15 PM
[2018-01-13 17:26] LABS: BASO % 0.2 %; BASO ABS # 0.02 K/uL (0-0.2); EOS % 0.5 %; EOS ABS # 0.05 K/uL (0-0.5); HEMATOCRIT 35.5 % (42-52); HEMOGLOBIN 12.1 g/dL (14.0-18.0); IG# 0.05 K/uL (0.00-0.02); LYMPH % 12.8 %; LYMPH ABS # 1.26 K/uL (1.2-3.4); MEAN CELL VOLUME 91.3 fL (80-100); MEAN CORPUSCULAR HEMOGLOBIN 31.1 pg (25-34); MEAN CORPUSCULAR HGB CONC 34.1 g/dl (32-36); MEAN PLATELET VOLUME 10.4 fL (7.4-10.4); MONO % 7.7 %; MONO ABS # 0.76 K/uL (0.11-0.59); NEUT % 78.3 %; NEUT ABS # 7.68 K/uL (1.4-6.5); PLATELET COUNT 204 K/uL (130-400); RED CELL DISTRIBUTION WIDTH CV 14.7 % (11.5-14.5); RED CELL DISTRIBUTION WIDTH SD 46.3 fL (36.4-46.3); WHITE BLOOD COUNT 9.82 K/uL (4.8-10.8)
[2018-01-13 17:31] VITALS: O2SAT 97; Ht 175.3 cm; Wt 95.3 kg
[2018-01-13 17:44] LABS: ALBUMIN 3.1 gm/dl (3.4-5.0); CALCIUM 7.9 mg/dl (8.5-10.1); CREATININE 0.87 mg/dl (0.60-1.40); POTASSIUM 3.5 mmol/L (3.5-5.1)
[2018-01-13 17:55] LABS: TOTAL PROTEIN 5.7 gm/dl (6.4-8.2)
[2018-01-13 18:01] LABS: PTT PATIENT 43.9 SECONDS (21.0-31.0)
--- NOTE | 2018-01-13 18:02 | History and Physical ---
History & Physical Date & Time of Service: Jan 13, 2018 at 18:02 Chief Complaint: Cardiac Assessment Primary Care Physician: Karoline Bonilla M.D. History of Present Illness Source: patient, clinic records, hospital records Patient is a 57-year-old male with a past medical history of prostate cancer (s/ p prostatectomy 12/31/17), s/p aortic valve replacement with metallic valve in 2011 (on coumadin) and hyperlipidemia who presents from the [place] ED with worsening scrotal swelling and A flutter with RVR. Patient was recently diagnosed with prostate cancer in October 2017 and is POD#8 s/p prostatectomy by at [facility]. Patient noticed scrotal swelling beginning 3 days after procedure and was evaluated in urology clinic yesterday, when catheter was removed. Ultrasound was performed at this time and showed significant subcutaneous edema of the scrotum with skin thickening. No evidence of torsion, small bilateral hydroceles, unable to exclude cellulitis but considered less likely. Since appointment, states that scrotal swelling has increased by 20% and patient experienced difficulty with urination. While in [place] ED, patient was incidentally found to be tachycardic with an HR of 209. EKG showed a flutter with RVR and patient was given a total of 30 mg Cardizem bolus and was started on a drip. Patient was transferred to [facility] for further evaluation with urology service. Upon initial eval in the ED, patient was found to be in sinus rhythm with HR in the 70s. Was also able to urinate ~300 cc without pain. States that he has been experiencing some nausea since prostatectomy as well as scrotal tenderness. No dysuria or hematuria. Denies any cardiac symptoms such as lightheadedness, pre-syncope, visual changes or chest pain but has been having difficulty sleeping the last few nights due to palpitations. Has only had one previous event of an atrial fibrillation, which occurred following his aortic valve replacement in 2011. Patient was discharged from [facility] on metoprolol at that time, which has since been discontinued. Denies fever, chills, headache, shortness of breath, abdominal pain, nausea, vomiting. Has BLE edema that is slightly worse than baseline. Past Medical/Surgical History Medical Problems: (1) Anticoagulant long-term use Status: Chronic (2) Hyperlipidemia Status: Chronic (3) Prostate cancer Permanent Comment: s/p prostatectomy 12/31/17 Status: Chronic Surgical Problems: (1) H/O prostatectomy Status: Chronic (2) S/P aortic valve replacement with metallic valve Permanent Comment: 2011[facility] [place] Status: Chronic Social History Smoking Status: Never Smoker Alcohol Use: none Marital Status: Housing status: lives with family Allergies Coded Allergies: No Known Allergies (Unverified , 01/05/18) Home Medications Scheduled Diphenhydramine Hcl (Benadryl Allergy), 1 CAP PO HS Rosuvastatin Calcium (Crestor), 10 MG PO QPM Warfarin Sod (Coumadin), 2 TABS PO DAILY Scheduled PRN Acetaminophen (Tylenol), 1,000 MG PO Q8 PRN for Pain or Fever Docusate Sodium (Docusate Sodium), 100 MG PO BID PRN for Constipation Furosemide (Lasix), 20 MG PO DAILY PRN for EDEMA Review of Systems Ten systems reviewed and negative except as noted in the HPI. Physical Exam Vital Signs Date Time Temp Pulse Resp B/P (MAP) Pulse Ox O2 Delivery O2 Flow Rate FiO2 01/13/18 17:44 74 20 115/84 98 Room Air 01/13/18 17:31 97 Room Air 01/13/18 16:32 70 01/13/18 16:08 37.1 72 19 117/74 97 Room Air 01/13/18 16:08 Room Air General Appearance: WD/WN, no apparent distress Head: normocephalic, atraumatic Eyes: normal inspection, PERRL, sclerae normal ENT: normal ENT inspection, hearing grossly normal, pharynx normal Neck: supple, thyroid normal, no JVD, trachea midline Respiratory/Chest: chest non-tender, lungs clear, normal breath sounds, no respiratory distress, no accessory muscle use Cardiovascular: regular rate, rhythm, no murmur, normal peripheral pulses, + pertinent finding (Trace BLE edema) Abdomen/GI: non tender, soft, no organomegaly Genitourinary - Male: + pertinent finding (Marked scrotal edema with bruising and erythema. TTP. ) Extremities/Musculoskelatal: normal inspection, no calf tenderness, no pedal edema Neurologic/Psych: no motor/sensory deficits, alert, normal mood/affect, oriented x 3 Skin: normal color, warm/dry Diagnostics Laboratory Results Results Past 24 Hours Test 01/13/18 17:03 Range/Units White Blood Count 9.82 4.8-10.8 K/uL Red Blood Count 3.89 4.7-6.1 M/uL Hemoglobin 12.1 14.0-18.0 g/dL Hematocrit 35.5 42-52 % Mean Corpuscular Volume 91.3 80-100 fL Mean Corpuscular Hemoglobin 31.1 25-34 pg Mean Corpuscular Hemoglobin Concent 34.1 32-36 g/dl Platelet Count 204 130-400 K/uL Mean Platelet Volume 10.4 7.4-10.4 fL Neutrophils (%) (Auto) 78.3 % Lymphocytes (%) (Auto) 12.8 % Monocytes (%) (Auto) 7.7 % Eosinophils (%) (Auto) 0.5 % Basophils (%) (Auto) 0.2 % Neutrophils # (Auto) 7.68 1.4-6.5 K/uL Lymphocytes # (Auto) 1.26 1.2-3.4 K/uL Monocytes # (Auto) 0.76 0.11-0.59 K/uL Eosinophils # (Auto) 0.05 0-0.5 K/uL Basophils # (Auto) 0.02 0-0.2 K/uL RDW Standard Deviation 46.3 36.4-46.3 fL RDW Coefficient of Variation 14.7 11.5-14.5 % Immature Granulocyte % (Auto) 0.5 % Immature Granulocyte # (Auto) 0.05 0.00-0.02 K/uL Sodium Level 140 136-145 mmol/L Potassium Level 3.5 3.5-5.1 mmol/L Chloride Level 108 98-107 mmol/L Carbon Dioxide Level 25 21-32 mmol/L Anion Gap 7.0 3-11 mmol/L Blood Urea Nitrogen 30 7-18 mg/dl Creatinine 0.87 0.60-1.40 mg/dl Est Creatinine Clear Calc Drug Dose 111.2 ml/min Estimated GFR () 110.3 Estimated GFR (Non- 95.1 BUN/Creatinine Ratio 33.8 10-20 Random Glucose 94 70-99 mg/dl Calcium Level 7.9 8.5-10.1 mg/dl Magnesium Level 2.1 1.8-2.4 mg/dl Total Bilirubin 0.6 0.2-1 mg/dl Aspartate Amino Transf (AST/SGOT) 57 15-37 U/L Alanine Aminotransferase (ALT/SGPT) 89 12-78 U/L Alkaline Phosphatase 56 45-117 U/L Troponin I 0.042 0-0.045 ng/ml Total Protein 5.7 6.4-8.2 gm/dl Albumin 3.1 3.4-5.0 gm/dl Globulin 2.6 2.5-4.0 gm/dl Albumin/Globulin Ratio 1.2 0.9-2 Thyroid Stimulating Hormone (TSH) 1.140 0.300-4.500 uIu/ml Diagnostic Radiology CXR: IMPRESSION: 1. Borderline enlargement cardiac silhouette. However, this could be accentuated by the AP portable technique and low lung volumes. 2. Linear density at the left lung base favor subsegmental atelectasis. A pneumonia could also have a similar appearance in the appropriate clinical setting. EKG Normal sinus rhythm Right bundle branch block Left anterior fascicular block Bifascicular block Minimal voltage criteria for LVH, may be normal variant T wave abnormality, consider lateral ischemia No change from prior EKG (RBBB and left anterior fascicular blocks previously noted on EKG) Impression Assessment and Plan Patient is a 57-year-old male with a past medical history of prostate cancer (s/ p prostatectomy 12/31/17), s/p aortic valve replacement with metallic valve in 2011 (on coumadin) and hyperlipidemia who presents from the [place] ED with worsening scrotal swelling and A flutter with RVR. A Flutter with RVR: resolved -Initially A Flutter with RVR with HR of 209 -Given 30mg cardizem, then drip initiated -Rate between 80-180 until arrival to [facility] -NSR with HR in 70s in ED -One one past episode of known A Fib followed AV replacement -Trend troponin. Echo ordered -Repeat EKG in AM -Cardio consult for evaluation of antiarrhythmics, need for long-term anticoagulation -Monitor on tele Scrotal swelling 2/ recent prostatectomy: -Follows with [facility] urology -Catheter removed yesterday -Ultrasound showed significant subcutaneous edema of the scrotum with skin thickening. No evidence of torsion, small bilateral hydroceles, unable to exclude cellulitis but considered less likely -Able to void successfully in ED -Urology consulted -Barrier cream for scrotum 2/2 irritation from urine -Will place lyons if patient retains urine Supratherapeutic INR: -On coumadin for metallic aortic valve -INR of 6.6 -Hold coumadin -Recheck INR in AM Hyperlipidemia: -Cont statin DVT Ppx: Coumadin held for now 2/2 supratherapeutic INR Code status: FULL PCP: [facility] Dispo: Observation telemetry. Plan to return home once medically stable. Patient seen in collaboration with Dr. Garcia. Please see addendum. Attending addendum: Patient seen and examined care coordinated with Windy Tovar PA-C. 57-year-old male with recently diagnosed prostate cancer with prostatectomy was seen at [facility] ED today with significant significant pain and swelling of the scrotal area found to be in rapid A. fib/flutter History of aortic valve replacement with metallic prosthesis On Coumadin, INR elevated Patient was transferred from [place] ER to [facility], as they do not have any urology support Physical exam: Please refer to physical exam by Windy Tovar PA-C Assessment plan: Paroxysmal A. fib Required IV Cardizem drip at [facility] ER On arrival to ER heart rate remains in A. fib with rate controlled Admit to telemetry Low dose, beta-hans initiated Serial cardiac marker, echo, cardiology consult History of prostate cancer/status post recent prostatectomy status post increased scrotal swelling: Follows with [facility] urology Ultrasound of scrotum shows significant subcutaneous edema/small bilateral hydrocele, no evidence of torsion Urology eval requested Please refer to documentation by Windy Tovar PA-C for further discussion of other issues Advanced Directives Existing Living Will: Yes Existing Power of Collision Repairer: Yes Resuscitation Status VTE Prophylaxis Will order VTE Prophylaxis: Yes
[2018-01-13 18:13] LABS: INR 6.6 (0.9-1.1)
[2018-01-13] MEDS ORDERED: ALUMINUM/MAGNESIUM/SIMETH (MAALOX MAX) 30 ML UDC PO PRN (18:15)
[2018-01-13] MEDS ORDERED: ONDANSETRON INJ 2 MG/ML 2 ML VIAL IV PRN (18:15)
[2018-01-13] MEDS ORDERED: IV FLUIDS COMPLETED PRN (18:30)
[2018-01-13] MEDS ORDERED: CMD5 PO ×2 (18:49)
[2018-01-13 19:18] VITALS: BP 114/68; PULSE 64; TEMP 37; O2SAT 98
[2018-01-13] MEDS ORDERED: LORAZEPAM 0.5 MG TAB PO PRN ×2 (20:45→22:00)
[2018-01-13] MEDS ORDERED: SENNA 8.6 MG TAB PO PRN (20:45)
--- NOTE | 2018-01-13 20:51 | GENITOURINARY CONSULTATION ---
DATE OF CONSULTATION: 01/13/2018 REASON FOR THE CONSULTATION: Difficulty voiding and scrotal edema, postop radical retropubic prostatectomy. HISTORY OF PRESENTATION: The patient is a 57-year-old male status post radical retropubic prostatectomy [address] Guajardo. The patient was seen in our office yesterday for catheter removal. He had significant scrotal swelling with some moderate edema and some erythema of his skin. He was sent for a scrotal sonogram, which showed normal flow to the testis, but significant edema of the scrotal wall and the catheter; however, was removed and the patient was initially able to void but with some difficulty. Today, he went to the Emergency Room in [place] because he was having trouble voiding. He was noted there to have atrial flutter and was transferred here because of this. In the Emergency Room, he was able to void spontaneously 350 mL and he felt significant relief. He said the flow was somewhat slow, but that was better than he had done before. He is being admitted by the hospitalist for evaluation at the cardiology unit. He denies any significant abdominal pain, nausea or fever or chills. His white blood cell count is normal. Creatinine is normal as well. The patient is not currently on any antibiotics. REVIEW OF SYSTEMS: Please refer to the review of systems from the Emergency Room admission and past medical history from that admission as well. PHYSICAL EXAMINATION: GENERAL: The patient appears alert and oriented. He does not appear to be in significant distress. HEENT: Unremarkable. ABDOMEN: Soft, nontender. GENITOURINARY: The wounds are without evidence of erythema, specifically the suprapubic area is not distended or uncomfortable on palpation. He does have significant scrotal edema but there is moderate erythema and the skin of the scrotal wall is not indurated. Skin appears to have some sort of a rash on it and we discussed putting a barrier on this to try to control this. As previously stated, the patient was able to void. EXTREMITIES: Unremarkable. NEUROLOGIC: He is alert and oriented without any focal sensory deficit. ASSESSMENT AND PLAN: Difficulty voiding in the immediate postop period. We will order a urine culture, will not place a Yousif catheter and I have instructed the staff not to place a Yousif catheter unless I am informed and I would be the one to do so. The patient may well have some swelling from the surgery which can make sometimes difficult to void, but as long as he is able to void would not replaced the Yousif catheter. Will check the culture and continue monitoring to make sure he can void properly and that his cardiac status is within normal limits and will follow him from there.
[2018-01-13] MEDS ORDERED: METOPROLOL TARTRATE 1 MG/ML VIAL IV PRN (21:00)
[2018-01-13] MEDS: ROSUVASTATIN CALCIUM 10 MG TAB PO SCH (21:38)
[2018-01-13 23:18] VITALS: PULSE 68; O2SAT 97
[2018-01-14] VITALS (9 sets, daily range): BP systolic 95–118; BP diastolic 61–78; PULSE 60–80; TEMP 36.4–36.7; O2SAT 94–98
[2018-01-14] MEDS: ACETAMINOPHEN 325 MG TAB PO PRN (05:13)
[2018-01-14] MEDS: DOCUSATE SODIUM 100 MG CAP PO PRN (05:33)
[2018-01-14 05:44] LABS: HEMATOCRIT 35.4 % (42-52); HEMOGLOBIN 11.7 g/dL (14.0-18.0); MEAN CELL VOLUME 93.7 fL (80-100); MEAN CORPUSCULAR HGB CONC 33.1 g/dl (32-36); MEAN PLATELET VOLUME 10.2 fL (7.4-10.4); PLATELET COUNT 206 K/uL (130-400); RED CELL DISTRIBUTION WIDTH SD 48.4 fL (36.4-46.3); WHITE BLOOD COUNT 8.47 K/uL (4.8-10.8)
[2018-01-14] MEDS ORDERED: HYDROmorphone INJ 0.5 MG/0.5 ML SYR IV STA (05:44)
[2018-01-14 05:57] LABS: INR 5.5 (0.9-1.1)
[2018-01-14 06:15] LABS: ALBUMIN 3.3 gm/dl (3.4-5.0); CALCIUM 8.3 mg/dl (8.5-10.1); CREATININE 0.95 mg/dl (0.60-1.40); POTASSIUM 3.7 mmol/L (3.5-5.1)
[2018-01-14 06:20] LABS: TOTAL PROTEIN 6.2 gm/dl (6.4-8.2)
--- NOTE | 2018-01-14 07:30 | DIAGNOSTIC IMAGING REPORT ---
CHEST ONE VIEW PORTABLE HISTORY: Short of breath. COMPARISON: Chest 01/13/2018. FINDINGS: No pneumothorax. No pleural effusions. The heart remains borderline enlarged. Left basilar linear densities persist and favor subsegmental atelectasis. No new focal lung consolidations. No evidence for pulmonary edema. There are poststernotomy changes and a cardiac valve prosthesis. IMPRESSION: 1. No significant change compared to the prior study. 2. Borderline cardiomegaly and left basilar subsegmental atelectasis are again noted. Electronically signed by: Aristeo Diehl M.D. 01/14/2018 7:29 AM Dictated Date/Time: 01/14/2018 7:28 AM
--- NOTE | 2018-01-14 07:32 | DIAGNOSTIC IMAGING REPORT ---
KUB HISTORY: flank pain COMPARISON: Outside hospital abdomen and pelvis CT 11/30/2017. FINDINGS: The bowel gas pattern is unremarkable. There are no dilated loops of small bowel to suggest an obstruction. There is a stable 1.8 cm stone within the lower pole of the left kidney. No right renal calculi. No ureteral calculi. Calcifications in the deep pelvis likely represent phleboliths. No pneumoperitoneum or pneumatosis. IMPRESSION: Stable left-sided nephrolithiasis. No ureteral calculi. Electronically signed by: Aristeo Diehl M.D. 01/14/2018 7:31 AM Dictated Date/Time: 01/14/2018 7:29 AM
[2018-01-14] MEDS: POLYETHYLENE (MIRALAX) 17 GM PACK PO SCH (08:49)
[2018-01-14] MEDS ORDERED: METOPROLOL TARTRATE 25 MG TAB PO SCH (09:00)
[2018-01-14] MEDS ORDERED: TRAMADOL HCL 50 MG TAB PO PRN (09:00)
--- NOTE | 2018-01-14 09:01 | ECHOCARDIOGRAM REPORT ---
*NOTICE TO RECEIVING REPUBLICAN AGENCY This information is strictly Confidential and protected under [place] law. [place] law prohibits you from making any further disclosure of this information unless further disclosure is expressly permitted by the written consent of the person to whom it pertains or is authorized by law. A general authorization for the release of medical or other information is not sufficient for this purpose. Hospital accepts no responsibility if the information is made available to any other person, INCLUDING THE PATIENT. Interpretation Summary * The study was technically adequate. * There is no comparison study available. * -- Conclusions -- * Left ventricular systolic function is mildly reduced. * Ejection Fraction = 45-50%. * There is a mechanical aortic valve. * The gradient is normal for this prosthetic aortic valve. * Doppler evidence of regurgitation is probably normal for this prosthetic aortic valve. * There is mild mitral regurgitation. * There is trace tricuspid regurgitation. Procedure Details * A complete two-dimensional transthoracic echocardiogram was performed (2D, M-mode, Doppler and color flow Doppler). Left Ventricle * There is normal left ventricular wall thickness. * Left ventricular systolic function is mildly reduced. * Ejection Fraction = 45-50%. * There is borderline global hypokinesis of the left ventricle. Right Ventricle * The right ventricular cavity size is normal (basal dimension <4.2 cm in right ventricular apical 4-chamber view). * The right ventricular systolic function is normal. Atria * The left atrial size is normal. * Right atrial size is normal. Mitral Valve * The mitral valve anatomy is normal. * There is no mitral valve stenosis. * There is mild mitral regurgitation. Tricuspid Valve * The tricuspid valve anatomy is normal. * There is no tricuspid stenosis. * There is trace tricuspid regurgitation. * Doppler findings do not suggest pulmonary hypertension. Aortic Valve * There is a mechanical aortic valve. * The gradient is normal for this prosthetic aortic valve. * Doppler evidence of regurgitation is probably normal for this prosthetic aortic valve. Pulmonic Valve * The pulmonary valve is not well seen, but the Doppler examination is normal without significant regurgitation or stenosis. Great Vessels * The aortic root is normal size. Pericardium/Pleural * There is no pericardial effusion. Left Ventricular Diastolic Function * Diastolic dysfunction, Grade II (pseudonormalization pattern). MMode 2D Measurements and Calculations IVSd 1.3 cm IVSs 1.6 cm LVIDd 5.2 cm LVIDs 4.2 cm LVPWd 1.1 cm LVPWs 1.6 cm IVS/LVPW 1.1 FS 17.8 % EDV(Teich) 127.0 ml ESV(Teich) 80.4 ml EF(Teich) 36.7 % EDV(cubed) 137.1 ml ESV(cubed) 76.3 ml EF(cubed) 44.4 % % IVS thick 31.7 % % LVPW thick 43.8 % LV mass(C)d 239.2 grams LV mass(C)dI 110.8 grams/m\S\2 LV mass(C)s 284.8 grams LV mass(C)sI 131.9 grams/m\S\2 SV(Teich) 46.6 ml SI(Teich) 21.6 ml/m\S\2 SV(cubed) 60.9 ml SI(cubed) 28.2 ml/m\S\2 LVOT diam 2.4 cm LVOT area 4.5 cm\S\2 LVAd ap4 41.0 cm\S\2 LVLd ap4 9.0 cm EDV(MOD-sp4) 151.1 ml EDV(sp4-el) 157.5 ml LVAs ap4 27.0 cm\S\2 LVLs ap4 7.9 cm ESV(MOD-sp4) 77.4 ml ESV(sp4-el) 78.8 ml EF(MOD-sp4) 48.7 % EF(sp4-el) 50.0 % LVAd ap2 42.8 cm\S\2 LVLd ap2 10.2 cm EDV(MOD-sp2) 152.3 ml EDV(sp2-el) 152.3 ml LVAs ap2 28.4 cm\S\2 LVLs ap2 8.9 cm ESV(MOD-sp2) 76.2 ml ESV(sp2-el) 77.2 ml EF(MOD-sp2) 50.0 % EF(sp2-el) 49.3 % LVLd %diff 11.5 % EDV(MOD-bp) 157.4 ml LVLs %diff 11.2 % ESV(MOD-bp) 82.1 ml EF(MOD-bp) 47.8 % SV(MOD-sp4) 73.7 ml SI(MOD-sp4) 34.1 ml/m\S\2 SV(MOD-sp2) 76.1 ml SI(MOD-sp2) 35.3 ml/m\S\2 SV(MOD-bp) 75.2 ml SI(MOD-bp) 34.8 ml/m\S\2 SV(sp4-el) 78.8 ml SI(sp4-el) 36.5 ml/m\S\2 SV(sp2-el) 75.1 ml SI(sp2-el) 34.8 ml/m\S\2 Doppler Measurements and Calculations MV E max nimisha 104.0 cm/sec MV A max nimisha 55.2 cm/sec MV E/A 1.9 MV P1/2t max nimisha 86.3 cm/sec MV P1/2t 100.0 msec MVA(P1/2t) 2.2 cm\S\2 MV dec slope 252.7 cm/sec\S\2 MV dec time 0.12 sec Ao V2 max 141.8 cm/sec Ao max PG 8.0 mmHg Ao max PG (full) 5.7 mmHg ALLIE(V,A) 2.4 cm\S\2 ALLIE(V,D) 2.4 cm\S\2 LV V1 max PG 2.4 mmHg LV V1 max 76.4 cm/sec PA V2 max 76.8 cm/sec PA max PG 2.4 mmHg TR max nimisha 188.9 cm/sec
[2018-01-14] MEDS ORDERED: POTASSIUM CHLORIDE 20 MEQ TABCR PO STA (09:33)
--- NOTE | 2018-01-14 09:37 | Cardiology Consultation ---
Cardiology Consultation Date of Consultation: Jan 14, 2018 Requesting Physician: Dr. Francisca Garcia. Reason for consultation tachycardia Attending Rotary Drier: Dr. Misael Chavez History of Present Illness Patient is a 57 year old male transferred from [place] emergency department due to lack of urologic coverage. Patient presented to the ER there with scrotal edema and pain. He was found to be tachycardic with a heart rate of approximately 210 bpm. ECG demonstrates supraventricular tachycardia versus atrial flutter with one-to-one conduction at a rate of 202 bpm. Patient was treated with intravenous Cardizem infusion in the emergency department at [place]. He spontaneously converted to normal sinus rhythm. Subsequently treated with low-dose beta-hans, metoprolol 12.5 mg this a.m. No recurrent dysrhythmias since transfer. Patient complains of scrotal pain and discomfort. Notes significant scrotal edema over the past 10 days. He is following with urology. INR noted to be supratherapeutic on admission. Patient is chronically anticoagulation for history of mechanical aortic valve replacement. History of postoperative atrial fibrillation in the past previously treated with beta-hans therapy. Denies orthopnea, PND, or chest discomfort. Patient was unaware of his elevated heart rate upon admission to the [place] ER. Notes intermittent palpitations over the past week. He feels this may have interrupted his sleep pattern. Notes mild pedal edema in association with scrotal edema. Denies frequency, urgency, or dysuria. Reports some hematuria this morning. Offers no other complaints at this time. Past Medical/Surgical History Problem List: Medical Problems: (1) Anticoagulant long-term use (2) Hyperlipidemia (3) Prostate cancer Surgical Problems: (1) H/O prostatectomy (2) S/P aortic valve replacement with metallic valve Family History Denies family history of premature coronary artery disease or sudden cardiac . Social History Smoking Status: Never Smoker Alcohol Use: none Marital Status: Housing Status: lives with family Review Of Systems Pertinent positives per HPI, otherwise: General: The patient denies weight change, night sweats, fever, chills. Head: The patient denies headache and prior head trauma. Cardiovascular: The patient denies chest pain or chest discomfort, dyspnea on exertion, palpitations, PND, orthopnea, edema, spontaneous shortness of breath, syncope and near syncope. Pulmonary: The patient denies cough, wheeze, pleurisy, hemoptysis, sputum, and excessive snoring. Gastrointestinal: The patient denies nausea, vomiting, diarrhea, constipation, bloating, hematemesis, hematochezia, and abdominal pain. Skin: The patient denies diaphoresis and rash. Musculoskeletal: The patient denies joint pain, joint swelling, myalgia, back pain, neck pain and prior injuries. Neurological: The patient denies prior stroke and seizures : Scrotal edema, scrotal pain, hematuria Allergies Coded Allergies: No Known Allergies (Unverified , 01/05/18) Medications Reported Home Medications Medications Dose Route/Sig Max Daily Dose Days Date Category Coumadin (Warfarin Sod) 5 Mg Tab 2 Tabs PO DAILY 01/13/18 Reported Tylenol (Acetaminophen) 500 Mg Tab 1,000 Mg PO Q8 PRN 01/13/18 Reported Docusate Sodium 100 Mg Cap 100 Mg PO BID PRN 01/06/18 Rx Benadryl Allergy (Diphenhydramine Hcl) 25 Mg Cap 1 Cap PO HS 30 12/25/17 Reported Lasix (Furosemide) 20 Mg Tab 20 Mg PO DAILY PRN 12/25/17 Reported Crestor (Rosuvastatin Calcium) 10 Mg Tab 10 Mg PO QPM 12/25/17 Reported Physical Exam Vital Signs (Last 8hrs): Last 8 Hrs Date Time Temp Pulse Resp B/P (MAP) Pulse Ox O2 Delivery O2 Flow Rate FiO2 01/14/18 08:00 Room Air CPAP 01/14/18 07:41 36.7 61 18 111/73 (86) 95 Room Air CPAP 01/14/18 04:07 36.4 80 18 118/77 (91) 96 Room Air 01/14/18 04:00 Room Air General Appearance: Alert and Oriented x3. NAD. Head: Normocephalic Atraumatic. Eyes: PERRLA, EOMI, conjunctiva and sclera clear Neck: Supple. No carotid bruits noted. No JVD. No HJD. Respiratory: Breath sounds clear to auscultation bilaterally. No w/r/r. Cardiovascular: Reg rate and rhythm. S1 and S2 noted. 1/6 systolic ejection murmur. Early mechanical valve closure click. No rubs, gallops. PMI non displace. Abdomen: Normal bowel sounds, soft nontender. no abdominal bruits. Extremities: Trace bilateral pedal edema. No clubbing or cyanosis. distal pulses 2/4 bilaterally. Neuro: No focal deficits. Psychiatric: Normal affect. : Scrotal edema Data Last 24 Hours Test 01/13/18 17:03 01/13/18 22:57 01/14/18 05:15 White Blood Count 9.82 K/uL 8.47 K/uL Red Blood Count 3.89 M/uL 3.78 M/uL Hemoglobin 12.1 g/dL 11.7 g/dL Hematocrit 35.5 % 35.4 % Mean Corpuscular Volume 91.3 fL 93.7 fL Mean Corpuscular Hemoglobin 31.1 pg 31.0 pg Mean Corpuscular Hemoglobin Concent 34.1 g/dl 33.1 g/dl Platelet Count 204 K/uL 206 K/uL Mean Platelet Volume 10.4 fL 10.2 fL Neutrophils (%) (Auto) 78.3 % Lymphocytes (%) (Auto) 12.8 % Monocytes (%) (Auto) 7.7 % Eosinophils (%) (Auto) 0.5 % Basophils (%) (Auto) 0.2 % Neutrophils # (Auto) 7.68 K/uL Lymphocytes # (Auto) 1.26 K/uL Monocytes # (Auto) 0.76 K/uL Eosinophils # (Auto) 0.05 K/uL Basophils # (Auto) 0.02 K/uL RDW Standard Deviation 46.3 fL 48.4 fL RDW Coefficient of Variation 14.7 % 15.0 % Immature Granulocyte % (Auto) 0.5 % Immature Granulocyte # (Auto) 0.05 K/uL Prothrombin Time 66.4 SECONDS 56.2 SECONDS Prothromb Time International Ratio 6.6 5.5 Activated Partial Thromboplast Time 43.9 SECONDS Partial Thromboplastin Ratio 1.7 Sodium Level 140 mmol/L 140 mmol/L Potassium Level 3.5 mmol/L 3.7 mmol/L Chloride Level 108 mmol/L 107 mmol/L Carbon Dioxide Level 25 mmol/L 26 mmol/L Anion Gap 7.0 mmol/L 7.0 mmol/L Blood Urea Nitrogen 30 mg/dl 30 mg/dl Creatinine 0.87 mg/dl 0.95 mg/dl Est Creatinine Clear Calc Drug Dose 111.2 ml/min 99.1 ml/min Estimated GFR () 110.3 101.9 Estimated GFR (Non- 95.1 87.9 BUN/Creatinine Ratio 33.8 31.6 Random Glucose 94 mg/dl 88 mg/dl Calcium Level 7.9 mg/dl 8.3 mg/dl Magnesium Level 2.1 mg/dl 2.2 mg/dl Total Bilirubin 0.6 mg/dl 0.6 mg/dl Aspartate Amino Transf (AST/SGOT) 57 U/L 53 U/L Alanine Aminotransferase (ALT/SGPT) 89 U/L 101 U/L Alkaline Phosphatase 56 U/L 62 U/L Troponin I 0.042 ng/ml 0.047 ng/ml 0.038 ng/ml Total Protein 5.7 gm/dl 6.2 gm/dl Albumin 3.1 gm/dl 3.3 gm/dl Globulin 2.6 gm/dl 2.9 gm/dl Albumin/Globulin Ratio 1.2 1.1 Thyroid Stimulating Hormone (TSH) 1.140 uIu/ml Imaging: Chest x-ray: Lungs are clear EKG: Sinus rhythm, left anterior fascicular block, right bundle branch block Telemetry reviewed: Sinus rhythm. 2D echocardiogram: Borderline LV systolic dysfunction with qualitative ejection fraction 45-50% and borderline global hypokinesis. Normal functioning mechanical aortic valve. Otherwise no significant valvular disease. Assessment & Plan Final impression: 1. 57-year-old male with paroxysmal supraventricular tachycardia versus paroxysmal atrial flutter with one-to-one conduction. Patient converted to sinus rhythm on intravenous Cardizem infusion which has been discontinued. Currently receiving low-dose beta-hans therapy without recurrent atrial arrhythmias. Chronically anticoagulation for history of mechanical aortic valve replacement. 2. Bicuspid aortic valve status post aortic root replacement with a 31 mm [place] valve and reimplantation of the coronary arteries 11/05/2011. 3. Mildly elevated troponin secondary to tachycardia. ECG demonstrates T-wave inversions although no regional wall motion abnormalities on echocardiogram. 4. History of nonobstructive coronary disease per cardiac catheterization 2010 5. 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 Prostate cancer status post recent radical prostatectomy and resultant scrotal edema Plan/recommendations: Increase metoprolol to 12.5 mg every 12 hours. Coumadin will remain on hold today due to supratherapeutic INR. Repeat PT/INR in a.m. Continue supportive care from a cardiovascular perspective. We will continue to monitor telemetry for recurrent dysrhythmias. Consider electrophysical consultation pending clinical course and response to beta-hans therapy. Recommend repeat assessment of systolic function with 2D transthoracic echo in 6-12 weeks. I will continue to follow the patient during hospitalization. Thank you for allowing me to participate in the care of your patient. Misael Chavez DO, FACC
[2018-01-14] MEDS ORDERED: MoRPHine SULFATE 4 MG/ML 1 ML CARP\\VIAL IV STA (11:19)
[2018-01-14] MEDS ORDERED: CYCLOBENZAPRINE HCL 5 MG TAB PO PRN (11:30)
[2018-01-14] MEDS ORDERED: MoRPHine SULFATE 4 MG/ML 1 ML CARP\\VIAL IV PRN (11:30)
[2018-01-14] MEDS ORDERED: HYDROCODONE/ACETAMIN 5/325MG TAB PO PRN (11:30)
[2018-01-14] MEDS ORDERED: LIDODERM (LIDOCAINE) PATCH 5% TD ONE (11:44)
--- NOTE | 2018-01-14 12:05 | Progress Note ---
Subjective Date of Service: Jan 14, 2018. Subjective Pt evaluation today including: conversation w/ patient, conversation w/ family , physical exam, chart review, lab review, review of studies Pain: r flank pain pt able to void but urine bloody scrotum remains swollen Problem List Medical Problems: (1) Rapid atrial fibrillation Status: Acute (2) Scrotal edema Status: Acute Objective Vital Signs Date Time Temp Pulse Resp B/P (MAP) Pulse Ox O2 Delivery O2 Flow Rate FiO2 01/14/18 11:46 36.6 60 18 118/78 (91) 96 Room Air 01/14/18 08:00 Room Air CPAP 01/14/18 07:41 36.7 61 18 111/73 (86) 95 Room Air CPAP 01/14/18 04:07 36.4 80 18 118/77 (91) 96 Room Air 01/14/18 04:00 Room Air 01/14/18 00:14 36.6 79 18 106/69 (81) 94 01/14/18 00:01 Room Air 01/13/18 23:18 68 97 01/13/18 19:18 37.0 64 18 114/68 (83) 98 Room Air 01/13/18 18:45 67 17 128/93 97 01/13/18 17:44 74 20 115/84 98 Room Air 01/13/18 17:31 97 Room Air 01/13/18 16:32 70 01/13/18 16:08 37.1 72 19 117/74 97 Room Air 01/13/18 16:08 Room Air Physical Exam General Appearance: + mild distress Comments: moderate scrotal swelling less skin erythema ct from [facility] yesterday reviewed . Previous 2 mm r renal stone not there but does not appear to be in ureter and kub yesterday nl no r hydro Laboratory Results Last 24 Hours Test 01/13/18 17:03 01/13/18 22:57 01/14/18 05:15 White Blood Count 9.82 K/uL 8.47 K/uL Red Blood Count 3.89 M/uL 3.78 M/uL Hemoglobin 12.1 g/dL 11.7 g/dL Hematocrit 35.5 % 35.4 % Mean Corpuscular Volume 91.3 fL 93.7 fL Mean Corpuscular Hemoglobin 31.1 pg 31.0 pg Mean Corpuscular Hemoglobin Concent 34.1 g/dl 33.1 g/dl Platelet Count 204 K/uL 206 K/uL Mean Platelet Volume 10.4 fL 10.2 fL Neutrophils (%) (Auto) 78.3 % Lymphocytes (%) (Auto) 12.8 % Monocytes (%) (Auto) 7.7 % Eosinophils (%) (Auto) 0.5 % Basophils (%) (Auto) 0.2 % Neutrophils # (Auto) 7.68 K/uL Lymphocytes # (Auto) 1.26 K/uL Monocytes # (Auto) 0.76 K/uL Eosinophils # (Auto) 0.05 K/uL Basophils # (Auto) 0.02 K/uL RDW Standard Deviation 46.3 fL 48.4 fL RDW Coefficient of Variation 14.7 % 15.0 % Immature Granulocyte % (Auto) 0.5 % Immature Granulocyte # (Auto) 0.05 K/uL Prothrombin Time 66.4 SECONDS 56.2 SECONDS Prothromb Time International Ratio 6.6 5.5 Activated Partial Thromboplast Time 43.9 SECONDS Partial Thromboplastin Ratio 1.7 Sodium Level 140 mmol/L 140 mmol/L Potassium Level 3.5 mmol/L 3.7 mmol/L Chloride Level 108 mmol/L 107 mmol/L Carbon Dioxide Level 25 mmol/L 26 mmol/L Anion Gap 7.0 mmol/L 7.0 mmol/L Blood Urea Nitrogen 30 mg/dl 30 mg/dl Creatinine 0.87 mg/dl 0.95 mg/dl Est Creatinine Clear Calc Drug Dose 111.2 ml/min 99.1 ml/min Estimated GFR () 110.3 101.9 Estimated GFR (Non- 95.1 87.9 BUN/Creatinine Ratio 33.8 31.6 Random Glucose 94 mg/dl 88 mg/dl Calcium Level 7.9 mg/dl 8.3 mg/dl Magnesium Level 2.1 mg/dl 2.2 mg/dl Total Bilirubin 0.6 mg/dl 0.6 mg/dl Aspartate Amino Transf (AST/SGOT) 57 U/L 53 U/L Alanine Aminotransferase (ALT/SGPT) 89 U/L 101 U/L Alkaline Phosphatase 56 U/L 62 U/L Troponin I 0.042 ng/ml 0.047 ng/ml 0.038 ng/ml Total Protein 5.7 gm/dl 6.2 gm/dl Albumin 3.1 gm/dl 3.3 gm/dl Globulin 2.6 gm/dl 2.9 gm/dl Albumin/Globulin Ratio 1.2 1.1 Thyroid Stimulating Hormone (TSH) 1.140 uIu/ml Assessment and Plan start antibiotic pending culture results could do ivp if flank pain persists
--- NOTE | 2018-01-14 19:53 | Progress Note ---
Medicine Progress Note Date & Time of Visit: Jan 14, 2018 at 19:31. Subjective seen resting in bed, moy at the bedside has right flank pain has the urge to void, but bladder scan ~20cc denies dysuria, has intermittent hematuria no chest pain, palpitations, dizziness no other symptoms Objective Last 8 Hrs Date Time Temp Pulse Resp B/P (MAP) Pulse Ox O2 Delivery O2 Flow Rate FiO2 01/14/18 16:17 Room Air 01/14/18 15:18 36.6 67 22 117/76 (90) 95 Room Air 01/14/18 12:00 Room Air CPAP 01/14/18 11:46 36.6 60 18 118/78 (91) 96 Room Air Physical Exam: General- oriented x 2, not in distress, speaks in sentences with no effort Head- atraumatic Eyes- anicteric ENT- oropharynx clear Neck- supple, no JVD, no adenopathy Lungs- clear to auscultation bilaterally Heart- regular rhythm; no murmur, normal rate Abdomen- normal bowel sounds, soft, nontender Genitals- significant scrotal edema Extremities- no pretibial edema, no calf tenderness; peripheral pulses intact Neuro- alert, oriented x 2; no gross focal deficits Skin- warm & dry Laboratory Results: Last 24 Hours Test 01/13/18 22:57 01/14/18 05:15 Troponin I 0.047 ng/ml 0.038 ng/ml White Blood Count 8.47 K/uL Red Blood Count 3.78 M/uL Hemoglobin 11.7 g/dL Hematocrit 35.4 % Mean Corpuscular Volume 93.7 fL Mean Corpuscular Hemoglobin 31.0 pg Mean Corpuscular Hemoglobin Concent 33.1 g/dl RDW Standard Deviation 48.4 fL RDW Coefficient of Variation 15.0 % Platelet Count 206 K/uL Mean Platelet Volume 10.2 fL Prothrombin Time 56.2 SECONDS Prothromb Time International Ratio 5.5 Sodium Level 140 mmol/L Potassium Level 3.7 mmol/L Chloride Level 107 mmol/L Carbon Dioxide Level 26 mmol/L Anion Gap 7.0 mmol/L Blood Urea Nitrogen 30 mg/dl Creatinine 0.95 mg/dl Est Creatinine Clear Calc Drug Dose 99.1 ml/min Estimated GFR () 101.9 Estimated GFR (Non- 87.9 BUN/Creatinine Ratio 31.6 Random Glucose 88 mg/dl Calcium Level 8.3 mg/dl Magnesium Level 2.2 mg/dl Total Bilirubin 0.6 mg/dl Aspartate Amino Transf (AST/SGOT) 53 U/L Alanine Aminotransferase (ALT/SGPT) 101 U/L Alkaline Phosphatase 62 U/L Total Protein 6.2 gm/dl Albumin 3.3 gm/dl Globulin 2.9 gm/dl Albumin/Globulin Ratio 1.1 Assessment & Plan Patient is a 57-year-old male with a past medical history of prostate cancer (s/ p prostatectomy 12/31/17), s/p aortic valve replacement with metallic valve in 2011 (on coumadin) and hyperlipidemia who presents from the [place] ED with worsening scrotal swelling and A flutter with RVR. Scrotal swelling 2/2 recent prostatectomy: -Ultrasound showed significant subcutaneous edema of the scrotum with skin thickening. No evidence of torsion, small bilateral hydroceles, unable to exclude cellulitis but considered less likely -Able to void successfully in ED - Urology consulted Urine cultures pending started Cipro BID Right Flank Pain from recent prostatectomy? passed renal stone? - PRN [place], Morphine Lidoderm pain warm compress A Flutter with RVR: resolved -Initially A Flutter with RVR with HR of 209 -Given 30mg cardizem, then drip initiated -Rate between 80-180 until arrival to [facility] -- echo noted ef 45% -- Cardiology consulted Metoprolol 12.5mg BID started already on coumadin for mechanical aortic valve Supratherapeutic INR: HISTORY OF MECHANICAL AORTIC VALVE -INR of 5.5 -Hold coumadin -Recheck INR in AM Hyperlipidemia: -Cont statin DVT Ppx: Coumadin held for now 2/2 supratherapeutic INR Code status: FULL PCP: [facility] Dispo: pending Current Inpatient Medications: Current Inpatient Medications Medications (Trade) Dose Ordered Sig/Darius Route Start Time Stop Time Status Last Admin Dose Admin Acetaminophen (Tylenol Tab) 650 mg Q4H PRN PO 01/13/18 18:15 02/12/18 18:14 01/14/18 05:13 650 MG Al Hydrox/Mg Hydrox/Simethicone (Maalox Max Susp) 15 ml Q4H PRN PO 01/13/18 18:15 02/12/18 18:14 Miscellaneous (Iv Fluids Completed) 1 ea PRN PRN N/A 01/13/18 18:30 01/13/19 18:29 Docusate Sodium (coLACE CAP) 100 mg BID PRN PO 01/13/18 18:30 02/12/18 18:29 01/14/18 05:33 100 MG Rosuvastatin Calcium (Crestor Tab) 10 mg QPM PO 01/13/18 21:00 02/12/18 20:59 01/13/18 21:38 10 MG Polyethylene (Miralax Powder Packet) 17 gm DAILY PO 01/14/18 09:00 02/13/18 08:59 01/14/18 08:49 17 GM Senna (Senokot Tab) 17.2 mg HS PRN PO 01/13/18 20:45 02/12/18 20:44 Metoprolol Tartrate (Lopressor Iv) 5 mg Q6 PRN IV 01/13/18 21:00 02/12/18 20:59 Lorazepam (Ativan Tab) 0.5 mg HSZ PRN PO 01/13/18 22:00 02/12/18 21:59 01/13/18 23:33 0.5 MG Metoprolol Tartrate (Lopressor Tab) 12.5 mg BID PO 01/14/18 21:00 02/13/18 08:59 Morphine Sulfate (MoRPHine SULFATE INJ) 4 mg Q4H PRN IV 01/14/18 11:30 01/28/18 11:29 Acetaminophen/ Hydrocodone Bitart ([place] 5/325 Tab) 1 tab Q4H PRN PO 01/14/18 11:30 01/28/18 11:29 01/14/18 14:17 1 TAB Cyclobenzaprine HCl (Flexeril Tab) 5 mg BID PRN PO 01/14/18 11:30 02/13/18 11:29 01/14/18 13:39 5 MG Lidocaine (Lidoderm Patch 5%) 1 patch QAM TD 01/15/18 09:00 02/14/18 08:59 Miscellaneous (Remove Lidoderm Patch) 1 ea DAILY@21 N/A 01/14/18 21:00 02/13/18 20:59 Ciprofloxacin (Cipro Tab) 500 mg BID PO 01/14/18 21:00 01/24/18 20:59
[2018-01-14] MEDS: CIPROFLOXACIN 500 MG TAB PO SCH (21:10)
[2018-01-14] MEDS: ROSUVASTATIN CALCIUM 10 MG TAB PO SCH (21:10)
[2018-01-14] MEDS: METOPROLOL TARTRATE 25 MG TAB PO SCH (21:10)
[2018-01-15] VITALS (8 sets, daily range): BP systolic 107–113; BP diastolic 63–75; PULSE 66–160; TEMP 36.6–37.4; O2SAT 94–96
[2018-01-15 07:05] LABS: BASO % 0.2 %; BASO ABS # 0.02 K/uL (0-0.2); EOS % 1.9 %; EOS ABS # 0.15 K/uL (0-0.5); HEMATOCRIT 32.9 % (42-52); HEMOGLOBIN 10.9 g/dL (14.0-18.0); IG# 0.04 K/uL (0.00-0.02); LYMPH ABS # 1.05 K/uL (1.2-3.4); MEAN CORPUSCULAR HEMOGLOBIN 31.1 pg (25-34); MEAN CORPUSCULAR HGB CONC 33.1 g/dl (32-36); MONO ABS # 0.64 K/uL (0.11-0.59); NEUT % 76.4 %; NEUT ABS # 6.15 K/uL (1.4-6.5); PLATELET COUNT 205 K/uL (130-400); RED CELL DISTRIBUTION WIDTH CV 15.2 % (11.5-14.5); WHITE BLOOD COUNT 8.05 K/uL (4.8-10.8)
[2018-01-15 07:11] LABS: INR 3.4 (0.9-1.1)
[2018-01-15 07:35] LABS: CALCIUM 8.3 mg/dl (8.5-10.1); CREATININE 0.94 mg/dl (0.60-1.40); POTASSIUM 3.8 mmol/L (3.5-5.1)
[2018-01-15] MEDS: LIDODERM (LIDOCAINE) PATCH 5% TD SCH (08:10)
[2018-01-15] MEDS: DOCUSATE SODIUM 100 MG CAP PO PRN (08:11)
[2018-01-15] MEDS: POLYETHYLENE (MIRALAX) 17 GM PACK PO SCH (08:11)
[2018-01-15] MEDS: CIPROFLOXACIN 500 MG TAB PO SCH ×2 (08:12→20:06)
[2018-01-15] MEDS: METOPROLOL TARTRATE 25 MG TAB PO SCH ×2 (08:12→20:05)
[2018-01-15] MEDS ORDERED: BISACODYL 10 MG SUPP PR PRN (09:15)
--- NOTE | 2018-01-15 09:21 | Progress Note ---
Subjective Date of Service: Jan 15, 2018. Subjective Pt evaluation today including: conversation w/ patient, chart review, lab review 57 yo male s/p RALRP. Pt admitted with a flutter. He reports an episode of a-fib this morning, but converted on his own. Continues to have scrotal swelling. He is voiding on his own, although PVR earlier this morning was 300ml. Continues to have issues with constipation. Denies pain. UC&S pending. Problem List Medical Problems: (1) Rapid atrial fibrillation Status: Acute (2) Scrotal edema Status: Acute Review of Systems Constitutional: No fever, No chills Respiratory: No shortness of breath Cardiac: No chest pain Abdomen: No pain, No nausea, No vomiting Male : No dysuria, No hematuria Heme: No abnormal bleeding/bruising Objective Vital Signs Date Time Temp Pulse Resp B/P (MAP) Pulse Ox O2 Delivery O2 Flow Rate FiO2 01/15/18 08:00 Room Air CPAP 01/15/18 07:33 36.6 74 20 108/68 (81) 96 Room Air 01/15/18 04:00 95 CPAP 01/15/18 00:00 96 CPAP 01/14/18 23:47 36.6 67 18 95/61 (72) 96 01/14/18 22:00 78 98 01/14/18 20:01 96 Room Air 01/14/18 19:38 36.5 72 17 107/72 (84) 96 Room Air 01/14/18 16:17 Room Air 01/14/18 15:18 36.6 67 22 117/76 (90) 95 Room Air 01/14/18 12:00 Room Air CPAP 01/14/18 11:46 36.6 60 18 118/78 (91) 96 Room Air Physical Exam General Appearance: no apparent distress Eyes: normal inspection ENT: hearing grossly normal Neck: no JVD Respiratory/Chest: no respiratory distress, no accessory muscle use Cardiovascular: no JVD Extremities: normal inspection Neurologic/Psychiatric: alert, normal mood/affect, oriented x 3 Skin: normal color Comments: scrotal edema Laboratory Results Last 24 Hours Test 01/15/18 06:46 White Blood Count 8.05 K/uL Red Blood Count 3.50 M/uL Hemoglobin 10.9 g/dL Hematocrit 32.9 % Mean Corpuscular Volume 94.0 fL Mean Corpuscular Hemoglobin 31.1 pg Mean Corpuscular Hemoglobin Concent 33.1 g/dl Platelet Count 205 K/uL Mean Platelet Volume 10.0 fL Neutrophils (%) (Auto) 76.4 % Lymphocytes (%) (Auto) 13.0 % Monocytes (%) (Auto) 8.0 % Eosinophils (%) (Auto) 1.9 % Basophils (%) (Auto) 0.2 % Neutrophils # (Auto) 6.15 K/uL Lymphocytes # (Auto) 1.05 K/uL Monocytes # (Auto) 0.64 K/uL Eosinophils # (Auto) 0.15 K/uL Basophils # (Auto) 0.02 K/uL RDW Standard Deviation 49.0 fL RDW Coefficient of Variation 15.2 % Immature Granulocyte % (Auto) 0.5 % Immature Granulocyte # (Auto) 0.04 K/uL Prothrombin Time 35.1 SECONDS Prothromb Time International Ratio 3.4 Sodium Level 140 mmol/L Potassium Level 3.8 mmol/L Chloride Level 107 mmol/L Carbon Dioxide Level 27 mmol/L Anion Gap 6.0 mmol/L Blood Urea Nitrogen 30 mg/dl Creatinine 0.94 mg/dl Est Creatinine Clear Calc Drug Dose 100.6 ml/min Estimated GFR () 103.2 Estimated GFR (Non- 89.0 BUN/Creatinine Ratio 31.7 Random Glucose 89 mg/dl Calcium Level 8.3 mg/dl Magnesium Level 2.2 mg/dl Assessment and Plan A/P: Prostate cancer, scrotal edema, difficulty voiding AFVSS. Scrotal edema persists. Supportive management with scrotal support, scrotal elevation, and ice packs. Will order. May take 2-3 weeks to resolve. Suspect his constipation and scrotal edema are limiting his voiding. Will continue to avoid lyons catheter for now. Continue bladder scans qshift. Will also order a Dulcolax suppository to aid in his constipation management. Will continue to follow along with primary service. The pt was seen and assessed with Dr. Mitchell this morning.
[2018-01-15] MEDS ORDERED: DOCUSATE SODIUM/SENNA 50/8.6MG TAB PO ONE (11:14)
[2018-01-15] MEDS ORDERED: LACTULOSE SYRUP 10 GM/15 ML BTL 473 ML PO PRN (11:15)
[2018-01-15] MEDS ORDERED: MAGNESIUM HYDROXIDE SUSP 30 ML UDC PO PRN (11:15)
[2018-01-15] MEDS ORDERED: POTASSIUM CHLORIDE 10 MEQ TABCR PO STA (11:24)
[2018-01-15] MEDS ORDERED: NURSING VERBAL MED ORDER ONE (11:45)
--- NOTE | 2018-01-15 12:23 | Progress Note ---
Medicine Progress Note Date & Time of Visit: Jan 15, 2018 at 12:16. Subjective noted to have tachycardia of 160s EKG showed possible SVT given Lopressor 5mg IV HR slowed to 60s, a fib patient was feeling flushed, lightheaded during episode on exam, resting in bed, comfortable states he feels better than yesterday no active chest pain, dyspnea able to void better had 1 BM able to ambulated better right flank pain much better no other symptoms Objective Last 8 Hrs Date Time Temp Pulse Resp B/P (MAP) Pulse Ox O2 Delivery O2 Flow Rate FiO2 01/15/18 12:00 Room Air CPAP 01/15/18 11:39 36.7 160 16 107/70 (82) 95 Room Air 01/15/18 11:14 160 01/15/18 08:00 Room Air CPAP 01/15/18 07:33 36.6 74 20 108/68 (81) 96 Room Air Physical Exam: General- oriented x 2, not in distress, speaks in sentences with no effort Eyes- anicteric Neck- supple, no JVD Lungs- clear breath sounds bilaterally no rales or wheezes Heart-irregularly irregular rhythm; no murmur, normal rate Abdomen- normal bowel sounds, soft, nontender Genitals- significant scrotal edema improved compared to yesterday nontender Extremities- no pretibial edema, no calf tenderness Neuro- alert, oriented x 2; no gross focal deficits Skin- warm & dry Laboratory Results: Last 24 Hours Test 01/15/18 06:46 White Blood Count 8.05 K/uL Red Blood Count 3.50 M/uL Hemoglobin 10.9 g/dL Hematocrit 32.9 % Mean Corpuscular Volume 94.0 fL Mean Corpuscular Hemoglobin 31.1 pg Mean Corpuscular Hemoglobin Concent 33.1 g/dl Platelet Count 205 K/uL Mean Platelet Volume 10.0 fL Neutrophils (%) (Auto) 76.4 % Lymphocytes (%) (Auto) 13.0 % Monocytes (%) (Auto) 8.0 % Eosinophils (%) (Auto) 1.9 % Basophils (%) (Auto) 0.2 % Neutrophils # (Auto) 6.15 K/uL Lymphocytes # (Auto) 1.05 K/uL Monocytes # (Auto) 0.64 K/uL Eosinophils # (Auto) 0.15 K/uL Basophils # (Auto) 0.02 K/uL RDW Standard Deviation 49.0 fL RDW Coefficient of Variation 15.2 % Immature Granulocyte % (Auto) 0.5 % Immature Granulocyte # (Auto) 0.04 K/uL Prothrombin Time 35.1 SECONDS Prothromb Time International Ratio 3.4 Sodium Level 140 mmol/L Potassium Level 3.8 mmol/L Chloride Level 107 mmol/L Carbon Dioxide Level 27 mmol/L Anion Gap 6.0 mmol/L Blood Urea Nitrogen 30 mg/dl Creatinine 0.94 mg/dl Est Creatinine Clear Calc Drug Dose 100.6 ml/min Estimated GFR () 103.2 Estimated GFR (Non- 89.0 BUN/Creatinine Ratio 31.7 Random Glucose 89 mg/dl Calcium Level 8.3 mg/dl Magnesium Level 2.2 mg/dl Assessment & Plan Patient is a 57-year-old male with a past medical history of prostate cancer (s/ p prostatectomy 12/31/17), s/p aortic valve replacement with metallic valve in 2011 (on coumadin) and hyperlipidemia who presents from the [employer] [facility] [facility] ED with worsening scrotal swelling and A flutter with RVR. Scrotal swelling 2/2 recent prostatectomy: -Ultrasound showed significant subcutaneous edema of the scrotum with skin thickening. No evidence of torsion, small bilateral hydroceles, unable to exclude cellulitis but considered less likely -Voiding better today - Urology consulted Urine cultures pending on empiric Cipro p.o. twice daily DVT -Continue elevation monitor closely Right Flank Pain from recent prostatectomy? passed renal stone? - PRN [place], Morphine Lidoderm patch warm compress -Significantly improved A Flutter with RVR: -Initially A Flutter with RVR with HR of 209 -Given 30mg cardizem, then drip initiated -Rate between 80-180 until arrival to [facility] -- echo noted ef 45% -- Cardiology consulted Metoprolol 12.5mg BID started already on coumadin for mechanical aortic valve INR 3.4 --January 15, 2018 Patient noted to have 2 episodes of possible SVT Resolved with Lopressor 5 mg IV Give potassium 20 mEq today May need to increase metoprolol Cardiology on board Supratherapeutic INR: HISTORY OF MECHANICAL AORTIC VALVE -INR of 5.5 , today 3.4 Usually takes Coumadin 10 mg p.o. daily Hold Coumadin today and check INR tomorrow Goal INR 2.5-3.5 Hyperlipidemia: -Cont statin DVT Ppx: Coumadin held for now 2/2 supratherapeutic INR Code status: FULL PCP: Duran Dispo: Anticipate discharge home when cleared by cardiology Follow-up with PCP Follow-up with cardiology Follow-up with urology Current Inpatient Medications: Current Inpatient Medications Medications (Trade) Dose Ordered Sig/Darius Route Start Time Stop Time Status Last Admin Dose Admin Acetaminophen (Tylenol Tab) 650 mg Q4H PRN PO 01/13/18 18:15 02/12/18 18:14 01/14/18 05:13 650 MG Al Hydrox/Mg Hydrox/Simethicone (Maalox Max Susp) 15 ml Q4H PRN PO 01/13/18 18:15 02/12/18 18:14 Miscellaneous (Iv Fluids Completed) 1 ea PRN PRN N/A 01/13/18 18:30 01/13/19 18:29 Docusate Sodium (coLACE CAP) 100 mg BID PRN PO 01/13/18 18:30 02/12/18 18:29 01/15/18 08:11 100 MG Rosuvastatin Calcium (Crestor Tab) 10 mg QPM PO 01/13/18 21:00 02/12/18 20:59 01/14/18 21:10 10 MG Polyethylene (Miralax Powder Packet) 17 gm DAILY PO 01/14/18 09:00 02/13/18 08:59 01/15/18 08:11 17 GM Metoprolol Tartrate (Lopressor Iv) 5 mg Q6 PRN IV 01/13/18 21:00 02/12/18 20:59 01/15/18 11:14 5 MG Lorazepam (Ativan Tab) 0.5 mg HSZ PRN PO 01/13/18 22:00 02/12/18 21:59 01/13/18 23:33 0.5 MG Metoprolol Tartrate (Lopressor Tab) 12.5 mg BID PO 01/14/18 21:00 02/13/18 08:59 01/15/18 08:12 12.5 MG Morphine Sulfate (MoRPHine SULFATE INJ) 4 mg Q4H PRN IV 01/14/18 11:30 01/28/18 11:29 Acetaminophen/ Hydrocodone Bitart ([place] 5/325 Tab) 1 tab Q4H PRN PO 01/14/18 11:30 01/28/18 11:29 01/14/18 14:17 1 TAB Cyclobenzaprine HCl (Flexeril Tab) 5 mg BID PRN PO 01/14/18 11:30 02/13/18 11:29 01/14/18 13:39 5 MG Lidocaine (Lidoderm Patch 5%) 1 patch QAM TD 01/15/18 09:00 02/14/18 08:59 Miscellaneous (Remove Lidoderm Patch) 1 ea DAILY@21 N/A 01/14/18 21:00 02/13/18 20:59 01/14/18 21:00 1 EA Ciprofloxacin (Cipro Tab) 500 mg BID PO 01/14/18 21:00 01/24/18 20:59 01/15/18 08:12 500 MG Bisacodyl (Dulcolax Supp) 10 mg BID PRN NE 01/15/18 09:15 02/14/18 09:14 01/15/18 09:53 10 MG Magnesium Hydroxide (Milk Of Magnesia Susp) 30 ml Q6H PRN PO 01/15/18 11:15 02/14/18 11:14 Lactulose (Chronulac Syrup) 15 gm BID PRN PO 01/15/18 11:15 02/14/18 11:14
[2018-01-15] MEDS ORDERED: METOPROLOL TARTRATE 25 MG TAB PO ONE (13:00)
--- NOTE | 2018-01-15 14:32 | Cardiology Follow-Up ---
Subjective General Date of Service: Jan 15, 2018. Pt evaluation today including: conversation w/ patient, conversation w/ family , physical exam, chart review, lab review, review of studies, review of inpatient medication list History of Present Illness The patient is a 57 year old male seen in follow-up. 2 episodes of recurrent paroxysmal atrial flutter with 2-1 conduction recorded. Patient symptomatic with palpitations. Denies lightheadedness, dizziness, syncope or near syncope. No chest discomfort or shortness of breath. Scrotal edema unchanged. Denies orthopnea or PND. is present at bedside. Allergies Coded Allergies: No Known Allergies (Unverified , 01/05/18) Social History Smoking Status: Never Smoker Hx Alcohol Use - Type And Amou: No Hx Substance Use - Type And Am: No Problem List Medical Problems: (1) Rapid atrial fibrillation Status: Acute (2) Scrotal edema Status: Acute Review of Systems Respiratory: No cough, No sputum, No wheezing, No shortness of breath, No dyspnea on exertion, No dyspnea at rest, No hemoptysis Cardiac: No chest pain, No orthopnea, No PND, No edema, No claudication, No palpitations Physical Exam Vital Signs Last Vital Signs Documentation Date Time Temp Pulse Resp B/P (MAP) Pulse Ox O2 Delivery O2 Flow Rate FiO2 01/15/18 12:00 Room Air CPAP 01/15/18 11:39 36.7 160 16 107/70 (82) 95 Physical Exam Constitutional: General Apperance: heathly-appearing Level of Distress: NAD Head: normocephalic, atraumatic Lungs: Auscultation: breath sounds normal, no wheezing, no rales/crackles, no rhonchi Cardiovascular: Heart Auscultation: RRR, normal S1, normal S2, II/ ESTER Peripheral Pulses: Radial Pulse: normal on the left, normal on the right Abdomen: Bowel Sounds: normal Inspection & Palpation: soft, non-distended, no tenderness, guarding & rebound Extremities: no cyanosis, no edema, pertinent finding (+ Scrotal edema) Neurologic: Gait & Station: pertinent finding (No focal motor deficit) Cranial Nerves: grossly intact Assessment and Plan Assessment and Plan Final impression: 1. Paroxysmal atrial flutter with rapid ventricular response evidence of 2-1 and 1-1 conduction. 2. Bicuspid aortic valve status post aortic root replacement with a 31 mm [place] valve and reimplantation of the coronary arteries 11/05/2011. 3. Mildly elevated troponin secondary to tachycardia. ECG demonstrates T-wave inversions although no regional wall motion abnormalities on echocardiogram. 4. History of nonobstructive coronary disease per cardiac catheterization 2010 5. 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 Prostate cancer status post recent radical prostatectomy and resultant scrotal edema Plan/recommendations: Increase metoprolol to 25 mg every 12 hours. Given additional 12.5 mg now. Restart Coumadin. Repeat PT/INR in a.m. Recommend repeat resting 2D transthoracic echo in 6-12 weeks. Cardiology will continue to follow patient during hospitalization. Misael Chavez DO, [facility] Laboratory Results Last 24 Hours Test 01/15/18 06:46 White Blood Count 8.05 K/uL Red Blood Count 3.50 M/uL Hemoglobin 10.9 g/dL Hematocrit 32.9 % Mean Corpuscular Volume 94.0 fL Mean Corpuscular Hemoglobin 31.1 pg Mean Corpuscular Hemoglobin Concent 33.1 g/dl Platelet Count 205 K/uL Mean Platelet Volume 10.0 fL Neutrophils (%) (Auto) 76.4 % Lymphocytes (%) (Auto) 13.0 % Monocytes (%) (Auto) 8.0 % Eosinophils (%) (Auto) 1.9 % Basophils (%) (Auto) 0.2 % Neutrophils # (Auto) 6.15 K/uL Lymphocytes # (Auto) 1.05 K/uL Monocytes # (Auto) 0.64 K/uL Eosinophils # (Auto) 0.15 K/uL Basophils # (Auto) 0.02 K/uL RDW Standard Deviation 49.0 fL RDW Coefficient of Variation 15.2 % Immature Granulocyte % (Auto) 0.5 % Immature Granulocyte # (Auto) 0.04 K/uL Prothrombin Time 35.1 SECONDS Prothromb Time International Ratio 3.4 Sodium Level 140 mmol/L Potassium Level 3.8 mmol/L Chloride Level 107 mmol/L Carbon Dioxide Level 27 mmol/L Anion Gap 6.0 mmol/L Blood Urea Nitrogen 30 mg/dl Creatinine 0.94 mg/dl Est Creatinine Clear Calc Drug Dose 100.6 ml/min Estimated GFR () 103.2 Estimated GFR (Non- 89.0 BUN/Creatinine Ratio 31.7 Random Glucose 89 mg/dl Calcium Level 8.3 mg/dl Magnesium Level 2.2 mg/dl
[2018-01-15] MEDS: WARFARIN SOD 10 MG TAB PO SCH (16:45)
[2018-01-15] MEDS: ROSUVASTATIN CALCIUM 10 MG TAB PO SCH (20:05)
[2018-01-16] VITALS (7 sets, daily range): BP systolic 96–121; BP diastolic 64–76; PULSE 60–73; TEMP 36.6–37; O2SAT 94–96
[2018-01-16 07:19] LABS: BASO % 0.2 %; BASO ABS # 0.02 K/uL (0-0.2); EOS % 2.1 %; EOS ABS # 0.17 K/uL (0-0.5); HEMATOCRIT 34.2 % (42-52); HEMOGLOBIN 11.4 g/dL (14.0-18.0); IG# 0.05 K/uL (0.00-0.02); LYMPH % 16.1 %; LYMPH ABS # 1.32 K/uL (1.2-3.4); MEAN CELL VOLUME 93.2 fL (80-100); MEAN CORPUSCULAR HEMOGLOBIN 31.1 pg (25-34); MEAN CORPUSCULAR HGB CONC 33.3 g/dl (32-36); MEAN PLATELET VOLUME 9.6 fL (7.4-10.4); MONO % 11.2 %; MONO ABS # 0.92 K/uL (0.11-0.59); NEUT % 69.8 %; NEUT ABS # 5.72 K/uL (1.4-6.5); PLATELET COUNT 216 K/uL (130-400); RED CELL DISTRIBUTION WIDTH CV 15.1 % (11.5-14.5); RED CELL DISTRIBUTION WIDTH SD 49.2 fL (36.4-46.3)
[2018-01-16 07:29] LABS: INR 2.3 (0.9-1.1)
[2018-01-16] MEDS: POLYETHYLENE (MIRALAX) 17 GM PACK PO SCH (08:02)
[2018-01-16] MEDS: LIDODERM (LIDOCAINE) PATCH 5% TD SCH (08:02)
[2018-01-16 08:03] LABS: CALCIUM 8.6 mg/dl (8.5-10.1); CREATININE 0.88 mg/dl (0.60-1.40); POTASSIUM 4.5 mmol/L (3.5-5.1)
[2018-01-16] MEDS: CIPROFLOXACIN 500 MG TAB PO SCH (08:03)
[2018-01-16] MEDS: METOPROLOL TARTRATE 25 MG TAB PO SCH (08:03)
[2018-01-16] MEDS ORDERED: DOCUSATE SODIUM/SENNA 50/8.6MG TAB PO SCH (09:00)
[2018-01-16] MEDS ORDERED: SOTALOL HCL 80 MG TAB PO ONE (10:30)
--- NOTE | 2018-01-16 10:49 | PROGRESS NOTE ---
DATE: 01/16/2018 The patient seen and examined. Chart, medications, telemetry reviewed. SUBJECTIVE: The patient this morning notes no acute complaints. Once again; however, had an episode of atrial flutter with rapid ventricular response last evening rates as high as 160-170 though asymptomatic. This morning notes no chest pains. Notes no tachypalpitations. Notes no syncope or near syncope. The scrotal edema remains unchanged. PHYSICAL EXAMINATION: VITAL SIGNS: Heart rate is 71, blood pressure is 118/76. HEENT: Normocephalic and atraumatic. NECK: Thick. There is no distinct jugular venous distention. LUNGS: Clear to auscultation. CARDIOVASCULAR: Regular with somewhat distant heart sounds and a grade 2/6 systolic murmur. ABDOMEN: Soft, nontender. There is no palpable splenomegaly. EXTREMITIES: Without cyanosis or clubbing. There is no peripheral edema. EKG today demonstrates normal QT. LABORATORY DATA: Sodium is 140, potassium is 4.5, chloride is 107, bicarbonate 27, BUN 22, creatinine 0.88. IMPRESSION: A 57-year-old male with history of paroxysmal atrial flutter with rapid ventricular response despite beta hans usage yesterday and appropriate electrolytes continued to have recurrent events. Discussed options of management including continued beta hans with metoprolol versus consideration of antiarrhythmic therapy given hospitalization. After discussion, we have agreed to proceed with initiating sotalol and maintaining in-hospital management for additional 48 hours. He is appropriately anticoagulated with warfarin. Electrolytes are normalized. PLAN: We will stop metoprolol begin sotalol, initially at 40 mg twice per day, first dose this morning. Serial EKGs ordered for daily a.m. He will maintain telemetry during hospitalization. Indications, benefits and risks discussed. Noted that given very rapid response to his atrial flutter use of antiarrhythmic in hospital was appropriate. Also noted that failure of this drug would lean more towards consideration for invasive ablation procedure.
--- NOTE | 2018-01-16 13:35 | Progress Note ---
Medicine Progress Note Date & Time of Visit: Jan 16, 2018 at 13:35. Subjective delayed entry date of service as noted above states he feels improved no chest pain, dyspnea, palpitations less scrotal pain no flank pain voiding fine no other symptoms Objective Last 8 Hrs Date Time Temp Pulse Resp B/P (MAP) Pulse Ox O2 Delivery O2 Flow Rate FiO2 01/16/18 11:58 36.6 69 18 110/69 (83) 94 Room Air 01/16/18 11:21 Room Air CPAP 01/16/18 08:00 Room Air CPAP 01/16/18 07:16 36.8 71 18 118/76 (90) 95 Physical Exam: General- oriented x 2, not in distress, speaks in sentences with no effort Eyes- anicteric Neck- supple, no JVD Lungs- clear breath sounds bilaterally Heart-irregularly irregular rhythm; no murmur, normal rate Abdomen- normal bowel sounds, soft, nontender Genitals- significant scrotal edema-- improving Extremities- no pretibial edema, no calf tenderness Neuro- alert, oriented x 2; no gross focal deficits Skin- warm & dry Laboratory Results: Last 24 Hours Test 01/16/18 06:57 White Blood Count 8.20 K/uL Red Blood Count 3.67 M/uL Hemoglobin 11.4 g/dL Hematocrit 34.2 % Mean Corpuscular Volume 93.2 fL Mean Corpuscular Hemoglobin 31.1 pg Mean Corpuscular Hemoglobin Concent 33.3 g/dl Platelet Count 216 K/uL Mean Platelet Volume 9.6 fL Neutrophils (%) (Auto) 69.8 % Lymphocytes (%) (Auto) 16.1 % Monocytes (%) (Auto) 11.2 % Eosinophils (%) (Auto) 2.1 % Basophils (%) (Auto) 0.2 % Neutrophils # (Auto) 5.72 K/uL Lymphocytes # (Auto) 1.32 K/uL Monocytes # (Auto) 0.92 K/uL Eosinophils # (Auto) 0.17 K/uL Basophils # (Auto) 0.02 K/uL RDW Standard Deviation 49.2 fL RDW Coefficient of Variation 15.1 % Immature Granulocyte % (Auto) 0.6 % Immature Granulocyte # (Auto) 0.05 K/uL Prothrombin Time 24.0 SECONDS Prothromb Time International Ratio 2.3 Sodium Level 140 mmol/L Potassium Level 4.5 mmol/L Chloride Level 107 mmol/L Carbon Dioxide Level 27 mmol/L Anion Gap 6.0 mmol/L Blood Urea Nitrogen 22 mg/dl Creatinine 0.88 mg/dl Est Creatinine Clear Calc Drug Dose 105.0 ml/min Estimated GFR () 109.7 Estimated GFR (Non- 94.7 BUN/Creatinine Ratio 25.6 Random Glucose 89 mg/dl Calcium Level 8.6 mg/dl Magnesium Level 2.2 mg/dl Assessment & Plan Patient is a 57-year-old male with a past medical history of prostate cancer (s/ p prostatectomy 12/31/17), s/p aortic valve replacement with metallic valve in 2011 (on coumadin) and hyperlipidemia who presents from the [place] ED with worsening scrotal swelling and A flutter with RVR. Scrotal swelling 2/ recent prostatectomy: -Ultrasound showed significant subcutaneous edema of the scrotum with skin thickening. No evidence of torsion, small bilateral hydroceles, unable to exclude cellulitis but considered less likely -Voiding continues to improve - Urology consulted Urine cultures gram neg on empiric Cipro p.o. twice daily --> change to Ceftri to avoid qt prolongation now that patient is on Sotalol -Continue elevation monitor closely Right Flank Pain from recent prostatectomy? passed renal stone? - PRN [place], Morphine Lidoderm patch warm compress - resolved A Flutter with RVR: -Initially A Flutter with RVR with HR of 209 -Given 30mg cardizem, then drip initiated -Rate between 80-180 until arrival to [facility] -- echo noted ef 45% -- Cardiology consulted Metoprolol 12.5mg BID started already on coumadin for mechanical aortic valve INR 3.4 --January 15, 2018 Patient noted to have 2 episodes of possible SVT Resolved with Lopressor 5 mg IV Give potassium 20 mEq today May need to increase metoprolol Cardiology on board -- January 16, 2018 changed to Sotalol monitor EKG--QT interval Supratherapeutic INR: HISTORY OF MECHANICAL AORTIC VALVE -INR of 5.5 , today 2.3 Usually takes Coumadin 10 mg p.o. daily Goal INR 2.5-3.5 Hyperlipidemia: -Cont statin DVT Ppx: Coumadin Code status: FULL PCP: Pilgram Dispo: Anticipate discharge home when cleared by cardiology Follow-up with PCP Follow-up with cardiology Follow-up with urology Current Inpatient Medications: Current Inpatient Medications Medications (Trade) Dose Ordered Sig/Darius Route Start Time Stop Time Status Last Admin Dose Admin Acetaminophen (Tylenol Tab) 650 mg Q4H PRN PO 01/13/18 18:15 02/12/18 18:14 01/14/18 05:13 650 MG Al Hydrox/Mg Hydrox/Simethicone (Maalox Max Susp) 15 ml Q4H PRN PO 01/13/18 18:15 02/12/18 18:14 Miscellaneous (Iv Fluids Completed) 1 ea PRN PRN N/A 01/13/18 18:30 01/13/19 18:29 Docusate Sodium (coLACE CAP) 100 mg BID PRN PO 01/13/18 18:30 02/12/18 18:29 01/15/18 08:11 100 MG Rosuvastatin Calcium (Crestor Tab) 10 mg QPM PO 01/13/18 21:00 02/12/18 20:59 01/15/18 20:05 10 MG Polyethylene (Miralax Powder Packet) 17 gm DAILY PO 01/14/18 09:00 02/13/18 08:59 01/15/18 08:11 17 GM Lorazepam (Ativan Tab) 0.5 mg HSZ PRN PO 01/13/18 22:00 02/12/18 21:59 01/13/18 23:33 0.5 MG Morphine Sulfate (MoRPHine SULFATE INJ) 4 mg Q4H PRN IV 01/14/18 11:30 01/28/18 11:29 Acetaminophen/ Hydrocodone Bitart ([place] 5/325 Tab) 1 tab Q4H PRN PO 01/14/18 11:30 01/28/18 11:29 01/14/18 14:17 1 TAB Cyclobenzaprine HCl (Flexeril Tab) 5 mg BID PRN PO 01/14/18 11:30 02/13/18 11:29 01/14/18 13:39 5 MG Lidocaine (Lidoderm Patch 5%) 1 patch QAM TD 01/15/18 09:00 02/14/18 08:59 Miscellaneous (Remove Lidoderm Patch) 1 ea DAILY@21 N/A 01/14/18 21:00 02/13/18 20:59 01/14/18 21:00 1 EA Bisacodyl (Dulcolax Supp) 10 mg BID PRN [place] 01/15/18 09:15 02/14/18 09:14 01/15/18 09:53 10 MG Magnesium Hydroxide (Milk Of Magnesia Susp) 30 ml Q6H PRN PO 01/15/18 11:15 02/14/18 11:14 Lactulose (Chronulac Syrup) 15 gm BID PRN PO 01/15/18 11:15 02/14/18 11:14 Warfarin Sodium (Coumadin Tab) 10 mg DAILY@16 PO 01/15/18 16:00 02/14/18 15:59 01/15/18 16:45 10 MG Sotalol HCl (Betapace Tab) 40 mg BID17 PO 01/16/18 17:00 02/15/18 16:59 Ceftriaxone Sodium 1 gm/ Dextrose 50 ml @ 100 mls/hr Q24H IV 01/16/18 18:00 01/26/18 17:59
[2018-01-16] MEDS: SOTALOL HCL 80 MG TAB PO SCH (16:41)
[2018-01-16] MEDS: WARFARIN SOD 10 MG TAB PO SCH (16:42)
[2018-01-16] MEDS: CEFTRIAXONE SOD INJ 1 GM in DEXTROSE 5% ADD-VANTAGE 50ML 50 ML IV SCH (17:25)
[2018-01-16] MEDS: ROSUVASTATIN CALCIUM 10 MG TAB PO SCH (20:03)
[2018-01-17] VITALS (7 sets, daily range): BP systolic 104–118; BP diastolic 64–77; PULSE 57–70; TEMP 36.3–37.4; O2SAT 91–97
[2018-01-17] MEDS: SOTALOL HCL 80 MG TAB PO SCH ×2 (07:43→17:36)
[2018-01-17] MEDS: POLYETHYLENE (MIRALAX) 17 GM PACK PO SCH (07:43)
[2018-01-17] MEDS: LIDODERM (LIDOCAINE) PATCH 5% TD SCH (07:43)
[2018-01-17 07:48] LABS: BASO % 0.1 %; BASO ABS # 0.01 K/uL (0-0.2); EOS % 2.6 %; EOS ABS # 0.22 K/uL (0-0.5); HEMATOCRIT 34.3 % (42-52); HEMOGLOBIN 11.4 g/dL (14.0-18.0); IG# 0.03 K/uL (0.00-0.02); LYMPH % 12.3 %; LYMPH ABS # 1.05 K/uL (1.2-3.4); MEAN CELL VOLUME 92.2 fL (80-100); MEAN CORPUSCULAR HEMOGLOBIN 30.6 pg (25-34); MEAN CORPUSCULAR HGB CONC 33.2 g/dl (32-36); MEAN PLATELET VOLUME 9.6 fL (7.4-10.4); MONO % 9.2 %; MONO ABS # 0.79 K/uL (0.11-0.59); NEUT % 75.4 %; NEUT ABS # 6.45 K/uL (1.4-6.5); PLATELET COUNT 197 K/uL (130-400); RED CELL DISTRIBUTION WIDTH CV 14.9 % (11.5-14.5); RED CELL DISTRIBUTION WIDTH SD 48.7 fL (36.4-46.3); WHITE BLOOD COUNT 8.55 K/uL (4.8-10.8)
[2018-01-17 08:03] LABS: INR 2.3 (0.9-1.1)
[2018-01-17 08:20] LABS: CALCIUM 8.2 mg/dl (8.5-10.1); CREATININE 0.76 mg/dl (0.60-1.40); POTASSIUM 3.9 mmol/L (3.5-5.1)
--- NOTE | 2018-01-17 10:56 | CARDIOLOGY PROGRESS NOTE ---
DATE: 01/17/2018 The patient was seen and examined. Chart, medications, and telemetry were reviewed. SUBJECTIVE: He feels well. The patient is ambulatory in the hallway. Notes no chest pains or discomfort. Notes no tachypalpitations. OBJECTIVE: VITAL SIGNS: Heart rate is 57 and blood pressure is 113/72. Telemetry reveals no arrhythmias. NECK: Thick. There is no jugular venous distention. LUNGS: Clear. CARDIOVASCULAR: Regular. EXTREMITIES: Without significant edema. LABORATORY DATA: EKG today demonstrates sinus rhythm with bifascicular block, right bundle branch and left intrafascicular block, not significantly changed from prior studies. Telemetry reveals no further tachyarrhythmias. QT corrected on EKG was 496. IMPRESSION: 1. A 57-year-old male with complex cardiac history, which includes paroxysmal atrial flutter with rapid ventricular response. 2. Bicuspid aortic valve with prior aortic root and valve replacement with [place] mechanical prosthesis. 3. Bifascicular heart block. RECOMMENDATIONS: The patient will be continued with sotalol load. The patient's QT down doing well after third dose. If clinically stable, may be discharged tomorrow. We will maintain telemetry during current hospitalization. EKG ordered for a.m.
[2018-01-17] MEDS: WARFARIN SOD 10 MG TAB PO SCH (15:45)
[2018-01-17] MEDS: CEFTRIAXONE SOD INJ 1 GM in DEXTROSE 5% ADD-VANTAGE 50ML 50 ML IV SCH (17:37)
[2018-01-17] MEDS: ROSUVASTATIN CALCIUM 10 MG TAB PO SCH (20:38)
[2018-01-18 03:21] VITALS: BP 120/70; PULSE 59; TEMP 36.6; O2SAT 96
[2018-01-18] MEDS: ACETAMINOPHEN 325 MG TAB PO PRN (03:27)
[2018-01-18 06:42] LABS: BASO % 0.2 %; BASO ABS # 0.02 K/uL (0-0.2); EOS ABS # 0.25 K/uL (0-0.5); HEMATOCRIT 33.8 % (42-52); HEMOGLOBIN 11.2 g/dL (14.0-18.0); IG# 0.03 K/uL (0.00-0.02); LYMPH % 16.4 %; LYMPH ABS # 1.35 K/uL (1.2-3.4); MEAN CELL VOLUME 91.8 fL (80-100); MEAN CORPUSCULAR HEMOGLOBIN 30.4 pg (25-34); MEAN CORPUSCULAR HGB CONC 33.1 g/dl (32-36); MEAN PLATELET VOLUME 9.8 fL (7.4-10.4); MONO % 7.4 %; MONO ABS # 0.61 K/uL (0.11-0.59); NEUT % 72.6 %; NEUT ABS # 5.98 K/uL (1.4-6.5); PLATELET COUNT 209 K/uL (130-400); RED CELL DISTRIBUTION WIDTH CV 14.5 % (11.5-14.5); RED CELL DISTRIBUTION WIDTH SD 47.8 fL (36.4-46.3); WHITE BLOOD COUNT 8.24 K/uL (4.8-10.8)
[2018-01-18 06:50] LABS: INR 2.3 (0.9-1.1)
[2018-01-18 07:22] LABS: CALCIUM 8.2 mg/dl (8.5-10.1); CREATININE 0.92 mg/dl (0.60-1.40); POTASSIUM 4.5 mmol/L (3.5-5.1)
[2018-01-18 07:48] VITALS: BP 116/73; PULSE 59; TEMP 36.5; O2SAT 95
--- NOTE | 2018-01-18 08:43 | Progress Note ---
Medicine Progress Note Date & Time of Visit: Jan 17, 2018 at 16:37. Subjective resting in bed, in good spirits no chest pain, dyspnea, palpitations, dizziness scrotal pain continues to improve no flank pain voiding with no problems no other symptoms Objective Last 8 Hrs Date Time Temp Pulse Resp B/P (MAP) Pulse Ox O2 Delivery O2 Flow Rate FiO2 01/17/18 12:00 Room Air CPAP 01/17/18 11:52 37.4 63 18 110/73 (85) 95 Room Air Physical Exam: General- oriented x 2, not in distress, speaks in sentences with no effort Eyes- anicteric Neck- no JVD Lungs- clear breath sounds bilaterally , no rales/wheezes Heart-regular rhythm; no murmur, normal rate Abdomen- normal bowel sounds, soft, nontender Genitals- significant scrotal edema-- improving Extremities- no pretibial edema, no calf tenderness Neuro- alert, oriented x 2; no gross focal deficits Skin- warm & dry Laboratory Results: Last 24 Hours Test 01/17/18 07:33 White Blood Count 8.55 K/uL Red Blood Count 3.72 M/uL Hemoglobin 11.4 g/dL Hematocrit 34.3 % Mean Corpuscular Volume 92.2 fL Mean Corpuscular Hemoglobin 30.6 pg Mean Corpuscular Hemoglobin Concent 33.2 g/dl Platelet Count 197 K/uL Mean Platelet Volume 9.6 fL Neutrophils (%) (Auto) 75.4 % Lymphocytes (%) (Auto) 12.3 % Monocytes (%) (Auto) 9.2 % Eosinophils (%) (Auto) 2.6 % Basophils (%) (Auto) 0.1 % Neutrophils # (Auto) 6.45 K/uL Lymphocytes # (Auto) 1.05 K/uL Monocytes # (Auto) 0.79 K/uL Eosinophils # (Auto) 0.22 K/uL Basophils # (Auto) 0.01 K/uL RDW Standard Deviation 48.7 fL RDW Coefficient of Variation 14.9 % Immature Granulocyte % (Auto) 0.4 % Immature Granulocyte # (Auto) 0.03 K/uL Prothrombin Time 23.8 SECONDS Prothromb Time International Ratio 2.3 Sodium Level 139 mmol/L Potassium Level 3.9 mmol/L Chloride Level 108 mmol/L Carbon Dioxide Level 27 mmol/L Anion Gap 4.0 mmol/L Blood Urea Nitrogen 22 mg/dl Creatinine 0.76 mg/dl Est Creatinine Clear Calc Drug Dose 124.3 ml/min Estimated GFR () 116.6 Estimated GFR (Non- 100.6 BUN/Creatinine Ratio 28.4 Random Glucose 91 mg/dl Calcium Level 8.2 mg/dl Magnesium Level 2.0 mg/dl Assessment & Plan Patient is a 57-year-old male with a past medical history of prostate cancer (s/ p prostatectomy 12/31/17), s/p aortic valve replacement with metallic valve in 2011 (on coumadin) and hyperlipidemia who presents from the [place] ED with worsening scrotal swelling and A flutter with RVR. Scrotal swelling 2/2 recent prostatectomy: -Ultrasound showed significant subcutaneous edema of the scrotum with skin thickening. No evidence of torsion, small bilateral hydroceles, unable to exclude cellulitis but considered less likely -Voiding continues to improve - Urology consulted Urine cultures gram neg on empiric Cipro p.o. twice daily --> change to Ceftri to avoid qt prolongation now that patient is on Sotalol change to Cefuroxime BID upon discharge -Continue elevation monitor closely Right Flank Pain from recent prostatectomy? passed renal stone? - PRN [place], Morphine Lidoderm patch warm compress - resolved A Flutter with RVR: -Initially A Flutter with RVR with HR of 209 -Given 30mg cardizem, then drip initiated -Rate between 80-180 until arrival to [facility] -- echo noted ef 45% -- Cardiology consulted Metoprolol 12.5mg BID started already on coumadin for mechanical aortic valve INR 3.4 --January 15, 2018 Patient noted to have 2 episodes of possible SVT Resolved with Lopressor 5 mg IV Give potassium 20 mEq today May need to increase metoprolol Cardiology on board -- January 16, 2018 changed to Sotalol monitor EKG--QT interval Supratherapeutic INR: HISTORY OF MECHANICAL AORTIC VALVE -INR of 5.5 , today 2.3 Usually takes Coumadin 10 mg p.o. daily Goal INR 2.5-3.5 Hyperlipidemia: -Cont statin DVT Ppx: Coumadin Code status: FULL PCP: Pilgram Dispo: Anticipate discharge home when cleared by cardiology Follow-up with PCP Follow-up with cardiology Follow-up with urology Current Inpatient Medications: Current Inpatient Medications Medications (Trade) Dose Ordered Sig/Darius Route Start Time Stop Time Status Last Admin Dose Admin Acetaminophen (Tylenol Tab) 650 mg Q4H PRN PO 01/13/18 18:15 02/12/18 18:14 01/14/18 05:13 650 MG Al Hydrox/Mg Hydrox/Simethicone (Maalox Max Susp) 15 ml Q4H PRN PO 01/13/18 18:15 02/12/18 18:14 Miscellaneous (Iv Fluids Completed) 1 ea PRN PRN N/A 01/13/18 18:30 01/13/19 18:29 Docusate Sodium (coLACE CAP) 100 mg BID PRN PO 01/13/18 18:30 02/12/18 18:29 01/15/18 08:11 100 MG Rosuvastatin Calcium (Crestor Tab) 10 mg QPM PO 01/13/18 21:00 02/12/18 20:59 01/16/18 20:03 10 MG Polyethylene (Miralax Powder Packet) 17 gm DAILY PO 01/14/18 09:00 02/13/18 08:59 01/17/18 07:43 17 GM Lorazepam (Ativan Tab) 0.5 mg HSZ PRN PO 01/13/18 22:00 02/12/18 21:59 01/13/18 23:33 0.5 MG Morphine Sulfate (MoRPHine SULFATE INJ) 4 mg Q4H PRN IV 01/14/18 11:30 01/28/18 11:29 Acetaminophen/ Hydrocodone Bitart ([place] 5/325 Tab) 1 tab Q4H PRN PO 01/14/18 11:30 01/28/18 11:29 01/14/18 14:17 1 TAB Cyclobenzaprine HCl (Flexeril Tab) 5 mg BID PRN PO 01/14/18 11:30 02/13/18 11:29 01/14/18 13:39 5 MG Lidocaine (Lidoderm Patch 5%) 1 patch QAM TD 01/15/18 09:00 02/14/18 08:59 01/17/18 07:43 1 PATCH Miscellaneous (Remove Lidoderm Patch) 1 ea DAILY@21 N/A 01/14/18 21:00 02/13/18 20:59 01/14/18 21:00 1 EA Bisacodyl (Dulcolax Supp) 10 mg BID PRN CO 01/15/18 09:15 02/14/18 09:14 01/15/18 09:53 10 MG Magnesium Hydroxide (Milk Of Magnesia Susp) 30 ml Q6H PRN PO 01/15/18 11:15 02/14/18 11:14 Lactulose (Chronulac Syrup) 15 gm BID PRN PO 01/15/18 11:15 02/14/18 11:14 Warfarin Sodium (Coumadin Tab) 10 mg DAILY@16 PO 01/15/18 16:00 02/14/18 15:59 01/17/18 15:45 10 MG Sotalol HCl (Betapace Tab) 40 mg BID17 PO 01/16/18 17:00 02/15/18 16:59 01/17/18 07:43 40 MG Ceftriaxone Sodium 1 gm/ Dextrose 50 ml @ 100 mls/hr Q24H IV 01/16/18 18:00 01/26/18 17:59 01/16/18 17:25 100 MLS/HR
[2018-01-18 08:48] VITALS: O2SAT 95
[2018-01-18] MEDS: LIDODERM (LIDOCAINE) PATCH 5% TD SCH (09:00)
[2018-01-18] MEDS: POLYETHYLENE (MIRALAX) 17 GM PACK PO SCH (09:28)
[2018-01-18] MEDS: SOTALOL HCL 80 MG TAB PO SCH (09:28)
--- NOTE | 2018-01-18 09:59 | Progress Note ---
Subjective Date of Service: Jan 18, 2018. Subjective Pt evaluation today including: conversation w/ patient, chart review, lab review Voiding: no voiding problems Pt denies pain this morning. Voiding improved. Scrotal swelling improving per pt making voiding easier. He does note some incontinence. UC&S growing e coli resistant to Cipro. Problem List Medical Problems: (1) Rapid atrial fibrillation Status: Acute (2) Scrotal edema Status: Acute Review of Systems Constitutional: No fever, No chills Respiratory: No shortness of breath Cardiac: No chest pain Abdomen: No pain, No nausea, No vomiting Male : No dysuria, No hematuria Heme: No abnormal bleeding/bruising Objective Vital Signs Date Time Temp Pulse Resp B/P (MAP) Pulse Ox O2 Delivery O2 Flow Rate FiO2 01/18/18 08:48 95 Room Air CPAP 01/18/18 07:48 36.5 59 16 116/73 (87) 95 01/18/18 03:27 CPAP 01/18/18 03:21 36.6 59 17 120/70 (87) 96 Room Air 01/17/18 23:54 36.3 61 18 114/64 (81) 95 CPAP 01/17/18 23:30 CPAP 01/17/18 23:11 70 97 01/17/18 20:38 Room Air 01/17/18 19:12 36.8 66 18 113/77 (89) 97 Room Air 01/17/18 17:05 37.2 65 20 118/77 (91) 91 Room Air 01/17/18 16:00 Room Air 01/17/18 12:00 Room Air CPAP 01/17/18 11:52 37.4 63 18 110/73 (85) 95 Room Air Physical Exam General Appearance: no apparent distress Eyes: normal inspection ENT: hearing grossly normal Neck: no JVD Respiratory/Chest: no respiratory distress, no accessory muscle use Cardiovascular: no JVD Abdomen: + pertinent finding (abdominal incisions c/d/i) Extremities: normal inspection Neurologic/Psychiatric: alert, normal mood/affect, oriented x 3 Skin: normal color Laboratory Results Last 24 Hours Test 01/18/18 06:19 White Blood Count 8.24 K/uL Red Blood Count 3.68 M/uL Hemoglobin 11.2 g/dL Hematocrit 33.8 % Mean Corpuscular Volume 91.8 fL Mean Corpuscular Hemoglobin 30.4 pg Mean Corpuscular Hemoglobin Concent 33.1 g/dl Platelet Count 209 K/uL Mean Platelet Volume 9.8 fL Neutrophils (%) (Auto) 72.6 % Lymphocytes (%) (Auto) 16.4 % Monocytes (%) (Auto) 7.4 % Eosinophils (%) (Auto) 3.0 % Basophils (%) (Auto) 0.2 % Neutrophils # (Auto) 5.98 K/uL Lymphocytes # (Auto) 1.35 K/uL Monocytes # (Auto) 0.61 K/uL Eosinophils # (Auto) 0.25 K/uL Basophils # (Auto) 0.02 K/uL RDW Standard Deviation 47.8 fL RDW Coefficient of Variation 14.5 % Immature Granulocyte % (Auto) 0.4 % Immature Granulocyte # (Auto) 0.03 K/uL Prothrombin Time 24.2 SECONDS Prothromb Time International Ratio 2.3 Sodium Level 140 mmol/L Potassium Level 4.5 mmol/L Chloride Level 107 mmol/L Carbon Dioxide Level 31 mmol/L Anion Gap 2.0 mmol/L Blood Urea Nitrogen 19 mg/dl Creatinine 0.92 mg/dl Est Creatinine Clear Calc Drug Dose 99.7 ml/min Estimated GFR () 105.9 Estimated GFR (Non- 91.4 BUN/Creatinine Ratio 20.7 Random Glucose 88 mg/dl Calcium Level 8.2 mg/dl Assessment and Plan A/P: Prostate cancer, scrotal edema, difficulty voiding, UTI AFVSS. Voiding improved. Scrotal edema improved. Supportive management with scrotal support and elevation. May take 2-3 weeks to completel resolve. Plan for the pt to be d/c'd home on 10 days of cefuroxime for UTI per primary service. Agree with plan. Pt OK for [facility] from [facility]. He will f/u with Dr. Guajardo as an outpatient on 01-20 as scheduled.
--- NOTE | 2018-01-18 10:38 | PROGRESS NOTE ---
DATE: 01/18/2018 CARDIOLOGY CONSULTATION AND FOLLOWUP NOTE The patient seen and examined. Chart, medications, telemetry reviewed. SUBJECTIVE: The patient notes no complaints, has been ambulatory in the hallway in the past 2 days. Notes no tachypalpitations, syncope or near syncope. Telemetry notes no further tachyarrhythmias. Denies any chest pain or discomfort. He has been appropriately anticoagulated. OBJECTIVE: VITAL SIGNS: Heart rate is 59, blood pressure is 116/73, O2 saturations 95% on room air. NECK: Thick. There is no distinct jugular venous distention. LUNGS: Clear to auscultation. CARDIOVASCULAR: Regular with normal S1, S2. There is crisp prosthetic valve sounds. There are no diastolic murmurs. There is no S3 gallop. ABDOMEN: Soft, nontender. EXTREMITIES: Without cyanosis or clubbing. There is trivial pedal edema only. LABORATORY DATA: INR is 2.3. Sodium is 140, potassium is 4.5, chloride is 107, bicarbonate is 31, BUN is 19, creatinine 0.92. EKG reveals sinus rhythm with bifascicular block. QT corrected. It is not delayed. IMPRESSION AND PLAN: A 57-year-old male with issues as follows: Paroxysmal atrial flutter with 1:1 AV conduction with minimally symptomatic, now controlled after oral sotalol load. The patient may be discharged to home later today with planned outpatient followup. Discussed in detail with the patient. He has tolerated medication load well. We will make arrangements to be seen through [facility], [place], in 1-2 weeks post-discharge. CLAUDIA
--- NOTE | 2018-01-18 11:14 | Progress Note ---
Medicine Progress Note Date & Time of Visit: Jan 18, 2018 at 11:06. Subjective Seen resting in bed comfortable Was also seen earlier today ambulating the hallways with no problems States he feels much better today Denies dizziness weakness chest pain shortness of breath palpitations nausea Scrotal pain is also better, voiding better, positive BMs daily Denies other symptoms States he is ready and would like to be discharged today Objective Last 8 Hrs Date Time Temp Pulse Resp B/P (MAP) Pulse Ox O2 Delivery O2 Flow Rate FiO2 01/18/18 08:48 95 Room Air CPAP 01/18/18 07:48 36.5 59 16 116/73 (87) 95 01/18/18 03:27 CPAP 01/18/18 03:21 36.6 59 17 120/70 (87) 96 Room Air Physical Exam: General- oriented x 2, not in distress, speaks in sentences with no effort Eyes- anicteric Neck- no JVD Lungs- clear breath sounds BL Heart-regular rhythm; no murmur, normal rate Abdomen- normal bowel sounds, nondistended soft, nontender Extremities- no pretibial edema, no calf tenderness Neuro- alert, oriented x 2; no gross focal deficits Skin- warm & dry mucous Laboratory Results: Last 24 Hours Test 01/18/18 06:19 White Blood Count 8.24 K/uL Red Blood Count 3.68 M/uL Hemoglobin 11.2 g/dL Hematocrit 33.8 % Mean Corpuscular Volume 91.8 fL Mean Corpuscular Hemoglobin 30.4 pg Mean Corpuscular Hemoglobin Concent 33.1 g/dl Platelet Count 209 K/uL Mean Platelet Volume 9.8 fL Neutrophils (%) (Auto) 72.6 % Lymphocytes (%) (Auto) 16.4 % Monocytes (%) (Auto) 7.4 % Eosinophils (%) (Auto) 3.0 % Basophils (%) (Auto) 0.2 % Neutrophils # (Auto) 5.98 K/uL Lymphocytes # (Auto) 1.35 K/uL Monocytes # (Auto) 0.61 K/uL Eosinophils # (Auto) 0.25 K/uL Basophils # (Auto) 0.02 K/uL RDW Standard Deviation 47.8 fL RDW Coefficient of Variation 14.5 % Immature Granulocyte % (Auto) 0.4 % Immature Granulocyte # (Auto) 0.03 K/uL Prothrombin Time 24.2 SECONDS Prothromb Time International Ratio 2.3 Sodium Level 140 mmol/L Potassium Level 4.5 mmol/L Chloride Level 107 mmol/L Carbon Dioxide Level 31 mmol/L Anion Gap 2.0 mmol/L Blood Urea Nitrogen 19 mg/dl Creatinine 0.92 mg/dl Est Creatinine Clear Calc Drug Dose 99.7 ml/min Estimated GFR () 105.9 Estimated GFR (Non- 91.4 BUN/Creatinine Ratio 20.7 Random Glucose 88 mg/dl Calcium Level 8.2 mg/dl Assessment & Plan Patient is a 57-year-old male with a past medical history of prostate cancer (s/ p prostatectomy 12/31/17), s/p aortic valve replacement with metallic valve in 2011 (on coumadin) and hyperlipidemia who presents from the [place] ED with worsening scrotal swelling and A flutter with RVR. A Flutter with RVR: -Initially A Flutter with RVR with HR of 209 -Given 30mg cardizem, then drip initiated -Rate between 80-180 until arrival to [facility] -- echo noted ef 45% -- Cardiology consulted Dr. Chavez Metoprolol 12.5mg BID started already on coumadin for mechanical aortic valve --On hospital day 2 Patient noted to have 2 episodes of possible SVT Resolved with Lopressor 5 mg IV Cardiology increased metoprolol 25 mg twice daily --On hospital day 3 Still was having paroxysmal A. fib flutter changed metoprolol to Sotalol 40 mg twice daily by Dr. Mccormick EKG monitored for QT prolongation After 2 days of sotalol, patient remained in sinus rhythm QT stable Patient tolerated medications well Clear for discharge by cardiology Follow-up with callisthenics instructor in [place] in 2 weeks Scrotal swelling 2/2 recent prostatectomy: -Ultrasound showed significant subcutaneous edema of the scrotum with skin thickening. No evidence of torsion, small bilateral hydroceles, unable to exclude cellulitis but considered less likely - Urology consulted Dr. Bob and Dr. Mitchell and YARELY Das Urine cultures positive for E. coli resistant to Cipro on empiric Cipro p.o. twice daily --> changed to Ceftri to avoid qt prolongation now that patient is on Sotalol - Received 3 days of ceftriaxone IV Discharged on cefuroxime twice daily 7 days to complete 10 days treatment May need repeat urine cultures after antibiotic course -Continue elevation of affected area Follow-up in urology clinic on Saturday, January 20, 2018 Right Flank Pain from recent prostatectomy? passed renal stone? - PRN [place], Morphine Lidoderm patch warm compress - resolved Supratherapeutic INR: HISTORY OF MECHANICAL AORTIC VALVE -On admission INR of 5.5 , Coumadin held Trended down gradually On discharge day 2.3 Continue Coumadin 10 mg p.o. daily Goal INR 2.5-3.5 Hyperlipidemia: -Cont statin DVT Ppx: Coumadin Dispo: Anticipate discharge home when cleared by cardiology Follow-up with PCP 3-5 days Follow-up with cardiology 2 weeks Follow-up with urology this week Current Inpatient Medications: Current Inpatient Medications Medications (Trade) Dose Ordered Sig/Darius Route Start Time Stop Time Status Last Admin Dose Admin Acetaminophen (Tylenol Tab) 650 mg Q4H PRN PO 01/13/18 18:15 02/12/18 18:14 01/18/18 03:27 650 MG Al Hydrox/Mg Hydrox/Simethicone (Maalox Max Susp) 15 ml Q4H PRN PO 01/13/18 18:15 02/12/18 18:14 Miscellaneous (Iv Fluids Completed) 1 ea PRN PRN N/A 01/13/18 18:30 01/13/19 18:29 Docusate Sodium (coLACE CAP) 100 mg BID PRN PO 01/13/18 18:30 02/12/18 18:29 01/15/18 08:11 100 MG Rosuvastatin Calcium (Crestor Tab) 10 mg QPM PO 01/13/18 21:00 02/12/18 20:59 01/17/18 20:38 10 MG Polyethylene (Miralax Powder Packet) 17 gm DAILY PO 01/14/18 09:00 02/13/18 08:59 01/18/18 09:28 17 GM Lorazepam (Ativan Tab) 0.5 mg HSZ PRN PO 01/13/18 22:00 02/12/18 21:59 01/13/18 23:33 0.5 MG Morphine Sulfate (MoRPHine SULFATE INJ) 4 mg Q4H PRN IV 01/14/18 11:30 01/28/18 11:29 Acetaminophen/ Hydrocodone Bitart ([place] 5/325 Tab) 1 tab Q4H PRN PO 01/14/18 11:30 01/28/18 11:29 01/14/18 14:17 1 TAB Cyclobenzaprine HCl (Flexeril Tab) 5 mg BID PRN PO 01/14/18 11:30 02/13/18 11:29 01/14/18 13:39 5 MG Lidocaine (Lidoderm Patch 5%) 1 patch QAM TD 01/15/18 09:00 02/14/18 08:59 01/17/18 07:43 1 PATCH Miscellaneous (Remove Lidoderm Patch) 1 ea DAILY@21 N/A 01/14/18 21:00 02/13/18 20:59 01/14/18 21:00 1 EA Bisacodyl (Dulcolax Supp) 10 mg BID PRN MS 01/15/18 09:15 02/14/18 09:14 01/15/18 09:53 10 MG Magnesium Hydroxide (Milk Of Magnesia Susp) 30 ml Q6H PRN PO 01/15/18 11:15 02/14/18 11:14 Lactulose (Chronulac Syrup) 15 gm BID PRN PO 01/15/18 11:15 02/14/18 11:14 Warfarin Sodium (Coumadin Tab) 10 mg DAILY@16 PO 01/15/18 16:00 02/14/18 15:59 01/17/18 15:45 10 MG Sotalol HCl (Betapace Tab) 40 mg BID17 PO 01/16/18 17:00 02/15/18 16:59 01/18/18 09:28 40 MG Ceftriaxone Sodium 1 gm/ Dextrose 50 ml @ 100 mls/hr Q24H IV 01/16/18 18:00 01/26/18 17:59 01/17/18 17:37 100 MLS/HR
[2018-01-18] MEDS ORDERED: CEFU1TAB33 PO ×2 (11:20)
[2018-01-18] MEDS ORDERED: BTP80 PO ×2 (11:20)
[2018-01-18] MEDS ORDERED: SENN8.6T7 PO ×2 (11:20)
--- NOTE | 2018-01-18 11:25 | Discharge Instructions ---
Discharge Instructions Date of Service Jan 18, 2018. Admission Reason for Admission: Rapid Atrial Fibrillation Discharge Discharge Diagnosis / Problem: ATRIAL FLUTTER Discharge Goals Goal(s): Diagnostic testing, Therapeutic intervention Activity Recommendations Activity Limitations: as noted below (NO HEAVY EXERTION UNTIL RE-EVALUATED BY PRIMARY CARE PHYSICIAN) Lifting Limitations: until after follow-up appointment Exercise/Sports Limitations: until after follow-up appointment Driving or Machine Use: NO DRIVING UNTIL RE-EVALUATED BY PRIMARY CAREP PHYSICIAN . Instructions / Follow-Up Instructions / Follow-Up PLEASE REVIEW YOUR NEW MEDICATION LIST AND FOLLOW INSTRUCTIONS CAREFULLY. CALL PRIMARY CARE PHYSICIAN OR RETURN TO ER IMMEDIATELY IF WITH RECURRENCE OF SYMPTOMS, PALPITATIONS, CHEST PAIN, SHORTNESS OF BREATH, INCREASING LEG SWELLING, INCREASING SCROTAL PAIN OR SWELLING, DECREASING URINE OUTPUT, FEVER/CHILLS. INCLUDE YOGURT IN YOUR DIET WHILE TAKING ANTIBIOTICS AND 1 WEEK AFTER FINISHING THE ANTIBIOTIC COURSE. ENSURE ADEQUATE DAILY FLUID INTAKE. FOLLOW UP WITH UROLOGIST ON 01/20/18. FOLLOW UP WITH PRIMARY CARE PROVIDER DR. WHITLEY ([facility]) ON SUNDAY JANUARY 21, 2018 10:45 AM. FOLLOW UP WITH ORACLE ANALYST IN 2 WEEKS. (THE CLINIC WILL CALL YOU FOR THE APPOINTMENT). Current Hospital Diet Patient's current hospital diet: AHA Diet (Heart Healthy) Discharge Diet Recommended Diet: AHA Diet (Heart Healthy) Procedures Procedures Performed: ECHOCARDIOGRAM Pending Studies Studies pending at discharge: no Medical Emergencies . Who to Call and When: Medical Emergencies: If at any time you feel your situation is an emergency, please call 911 immediately. . Non-Emergent Contact Non-Emergency issues call your: Primary Care Provider, Felt Cutter, Urologist Call Non-Emergent contact if: you have a fever, your pain is not controlled, your pain is worsening, you have any medication questions . . "Provider Documentation" section prepared by Sharad Gagnon. .
[2018-01-18 11:50] VITALS: BP_SYST 113; BP_SYST 116; BP_DIAS 72; BP_DIAS 73; PULSE 59; PULSE 65; TEMP 36.5; TEMP 36.6; O2SAT 95; O2SAT 97
--- NOTE | 2018-01-18 11:53 | Discharge Summary ---
Discharge Summary Date of Service Jan 18, 2018. Discharge Summary Admission Date: Jan 15, 2018 at 08:02 Discharge Date: Jan 18, 2018 Discharge Disposition: Home Principal Diagnosis: A Flutter with RVR Secondary Diagnoses/Problems: Please refer to hospital course below. Procedures: ECHO * -- Conclusions -- * Left ventricular systolic function is mildly reduced. * Ejection Fraction = 45-50%. * There is a mechanical aortic valve. * The gradient is normal for this prosthetic aortic valve. * Doppler evidence of regurgitation is probably normal for this prosthetic aortic valve. * There is mild mitral regurgitation. * There is trace tricuspid regurgitation. CHEST ONE VIEW PORTABLE HISTORY: Short of breath. COMPARISON: Chest 01/13/2018. FINDINGS: No pneumothorax. No pleural effusions. The heart remains borderline enlarged. Left basilar linear densities persist and favor subsegmental atelectasis. No new focal lung consolidations. No evidence for pulmonary edema. There are poststernotomy changes and a cardiac valve prosthesis. IMPRESSION: 1. No significant change compared to the prior study. 2. Borderline cardiomegaly and left basilar subsegmental atelectasis are again noted. KUB HISTORY: flank pain COMPARISON: Outside hospital abdomen and pelvis CT 11/30/2017. FINDINGS: The bowel gas pattern is unremarkable. There are no dilated loops of small bowel to suggest an obstruction. There is a stable 1.8 cm stone within the lower pole of the left kidney. No right renal calculi. No ureteral calculi. Calcifications in the deep pelvis likely represent phleboliths. No pneumoperitoneum or pneumatosis. IMPRESSION: Stable left-sided nephrolithiasis. No ureteral calculi. Consultations: GENERATOR ASSEMBLER DR. MCCORMICK, UROLOGIST DR. SINGH/YARELY CHOWDARY Pending Studies/Follow-Up: PLEASE REFER TO HOSPITAL COURSE BELOW. Medication Reconciliation New Medications: Cefuroxime Axetil (Cefuroxime Axetil) 250 Mg Tab 1 TAB PO BID for 7 Days, #14 TABS 0 Refills Sennosides-Docusate Sodium (Senokot S) 1 Tab Tab 1 TAB PO DAILY PRN for Constipation for 7 Days, #7 TAB 2 Refills Sotalol HCl (Sotalol HCl) 80 Mg Tab 40 MG PO BID for 30 Days, #30 TAB 2 Refills Continued Medications: Acetaminophen (Tylenol) 500 Mg Tab 1000 MG PO Q8 PRN for Pain or Fever, TAB Furosemide (Lasix) 20 Mg Tab 20 MG PO DAILY PRN for EDEMA, TAB Rosuvastatin Calcium (Crestor) 10 Mg Tab 10 MG PO QPM, TAB Warfarin Sod (Coumadin) 5 Mg Tab 2 TABS PO DAILY Discontinued Medications: Diphenhydramine Hcl (Benadryl Allergy) 25 Mg Cap 1 CAP PO HS for 30 Days, #30 CAP Docusate Sodium (Docusate Sodium) 100 Mg Cap 100 MG PO BID PRN for Constipation, #60 CAP 0 Refills Admission Information HPI (per Admitting provider): Patient is a 57-year-old male with a past medical history of prostate cancer (s/ p prostatectomy 12/31/17), s/p aortic valve replacement with metallic valve in 2011 (on coumadin) and hyperlipidemia who presents from the [place] ED with worsening scrotal swelling and A flutter with RVR. Patient was recently diagnosed with prostate cancer in October 2017 and is POD#8 s/p prostatectomy by at [facility]. Patient noticed scrotal swelling beginning 3 days after procedure and was evaluated in urology clinic yesterday, when catheter was removed. Ultrasound was performed at this time and showed significant subcutaneous edema of the scrotum with skin thickening. No evidence of torsion, small bilateral hydroceles, unable to exclude cellulitis but considered less likely. Since appointment, states that scrotal swelling has increased by 20% and patient experienced difficulty with urination. While in [place] ED, patient was incidentally found to be tachycardic with an HR of 209. EKG showed a flutter with RVR and patient was given a total of 30 mg Cardizem bolus and was started on a drip. Patient was transferred to [facility] for further evaluation with urology service. Upon initial eval in the ED, patient was found to be in sinus rhythm with HR in the 70s. Was also able to urinate ~300 cc without pain. States that he has been experiencing some nausea since prostatectomy as well as scrotal tenderness. No dysuria or hematuria. Denies any cardiac symptoms such as lightheadedness, pre-syncope, visual changes or chest pain but has been having difficulty sleeping the last few nights due to palpitations. Has only had one previous event of an atrial fibrillation, which occurred following his aortic valve replacement in 2011. Patient was discharged from [facility] on metoprolol at that time, which has since been discontinued. Denies fever, chills, headache, shortness of breath, abdominal pain, nausea, vomiting. Has BLE edema that is slightly worse than baseline. Physical Exam (per Admitting): General Appearance: WD/WN, no apparent distress Head: normocephalic, atraumatic Eyes: normal inspection, PERRL, sclerae normal ENT: normal ENT inspection, hearing grossly normal, pharynx normal Neck: supple, thyroid normal, no JVD, trachea midline Respiratory/Chest: chest non-tender, lungs clear, normal breath sounds, no respiratory distress, no accessory muscle use Cardiovascular: regular rate, rhythm, no murmur, normal peripheral pulses, + pertinent finding (Trace BLE edema) Abdomen/GI: non tender, soft, no organomegaly Genitourinary - Male: + pertinent finding (Marked scrotal edema with bruising and erythema. TTP. ) Extremities/Musculoskelatal: normal inspection, no calf tenderness, no pedal edema Neurologic/Psych: no motor/sensory deficits, alert, normal mood/affect, oriented x 3 Skin: normal color, warm/dry Hospital Course Patient is a 57-year-old male with a past medical history of prostate cancer (s/ p prostatectomy 12/31/17), s/p aortic valve replacement with metallic valve in 2011 (on coumadin) and hyperlipidemia who presents from the [place] ED with worsening scrotal swelling and A flutter with RVR. A Flutter with RVR: -Initially A Flutter with RVR with HR of 209 -Given 30mg cardizem, then drip initiated -Rate between 80-180 until arrival to [facility] -- echo noted: EF 45% -- Cardiology consulted Dr. Chavez Metoprolol 12.5mg BID started already on coumadin for mechanical aortic valve --On hospital day 2 Patient noted to have 2 episodes of possible SVT Resolved with Lopressor 5 mg IV Cardiology increased metoprolol 25 mg twice daily --On hospital day 3 Still was having paroxysmal A. fib flutter changed metoprolol to Sotalol 40 mg twice daily by Dr. Mccormick EKG monitored for QT prolongation After 2 days of sotalol, patient remained in sinus rhythm QT stable Patient tolerated medications well Clear for discharge by cardiology Follow-up with litigation legal secretary in [place] in 2 weeks Scrotal swelling 2/2 recent prostatectomy: -Ultrasound showed significant subcutaneous edema of the scrotum with skin thickening. No evidence of torsion, small bilateral hydroceles, unable to exclude cellulitis but considered less likely - Urology consulted Dr. Singh and Dr. Chowdary and YARELY Das Urine cultures positive for E. coli resistant to Cipro on empiric Cipro p.o. twice daily --> changed to Ceftri to avoid qt prolongation now that patient is on Sotalol - Received 3 days of ceftriaxone IV Discharged on cefuroxime twice daily 7 days to complete 10 days treatment May need repeat urine cultures after antibiotic course -Continue elevation of affected area Follow-up in urology clinic on Saturday, January 20, 2018 Right Flank Pain from recent prostatectomy? passed renal stone? - PRN [place], Morphine Lidoderm patch warm compress - resolved Supratherapeutic INR: HISTORY OF MECHANICAL AORTIC VALVE -On admission INR of 5.5 , Coumadin held Trended down gradually On discharge day 2.3 Continue Coumadin 10 mg p.o. daily Goal INR 2.5-3.5 Hyperlipidemia: -Cont statin Dispo: Anticipate discharge home when cleared by cardiology Follow-up with PCP 3-5 days Follow-up with cardiology 2 weeks Follow-up with urology this week Total time spent on discharge = 40 MINS This includes examination of the patient, discharge planning, medication reconciliation, and communication with other providers. Discharge Instructions Discharge Instructions Date of Service Jan 18, 2018. Admission Reason for Admission: Rapid Atrial Fibrillation Discharge Discharge Diagnosis / Problem: ATRIAL FLUTTER Discharge Goals Goal(s): Diagnostic testing, Therapeutic intervention Activity Recommendations Activity Limitations: as noted below (NO HEAVY EXERTION UNTIL RE-EVALUATED BY PRIMARY CARE PHYSICIAN) Lifting Limitations: until after follow-up appointment Exercise/Sports Limitations: until after follow-up appointment Driving or Machine Use: NO DRIVING UNTIL RE-EVALUATED BY PRIMARY CAREP PHYSICIAN . Instructions / Follow-Up Instructions / Follow-Up PLEASE REVIEW YOUR NEW MEDICATION LIST AND FOLLOW INSTRUCTIONS CAREFULLY. CALL PRIMARY CARE PHYSICIAN OR RETURN TO ER IMMEDIATELY IF WITH RECURRENCE OF SYMPTOMS, PALPITATIONS, CHEST PAIN, SHORTNESS OF BREATH, INCREASING LEG SWELLING, INCREASING SCROTAL PAIN OR SWELLING, DECREASING URINE OUTPUT, FEVER/CHILLS. INCLUDE YOGURT IN YOUR DIET WHILE TAKING ANTIBIOTICS AND 1 WEEK AFTER FINISHING THE ANTIBIOTIC COURSE. ENSURE ADEQUATE DAILY FLUID INTAKE. Current Hospital Diet Patient's current hospital diet: AHA Diet (Heart Healthy) Discharge Diet Recommended Diet: AHA Diet (Heart Healthy) Procedures Procedures Performed: ECHOCARDIOGRAM Pending Studies Studies pending at discharge: no Medical Emergencies . Who to Call and When: Medical Emergencies: If at any time you feel your situation is an emergency, please call 911 immediately. . Non-Emergent Contact Non-Emergency issues call your: Primary Care Provider, Watch Assembler, Urologist Call Non-Emergent contact if: you have a fever, your pain is not controlled, your pain is worsening, you have any medication questions . . "Provider Documentation" section prepared by Sharad Gagnon. .
[2018-01-18 12:00] VITALS: O2SAT 95
== END 2018-01-18 14:46 | disposition home or self-care (01) | DRG 310 ==
LOC: EDBD 16:02 → C.EDC 16:03 → C.2T 18:02 → CANRESERV 18:07 → ENRESERV 18:07 → OBSVTOIN 01-15 08:02
PROVIDERS: ADMIT Hospitalist; ATTEND Internal Medicine
DX: I48.92 Unspecified atrial flutter (principal); I47.1 Supraventricular tachycardia; E78.5 Hyperlipidemia, unspecified; N50.89 Other specified disorders of the male genital organs; R79.1 Abnormal coagulation profile; I48.0 Paroxysmal atrial fibrillation; I45.10 Unspecified right bundle-branch block; C61 Malignant neoplasm of prostate; R10.9 Unspecified abdominal pain; Z80.42 Family history of malignant neoplasm of prostate; Z95.2 Presence of prosthetic heart valve; Z79.01 Long term (current) use of anticoagulants; Z90.79 Acquired absence of other genital organ(s)